=== PATIENT | male | born 2000 | race Caucasian/White ===

== ENCOUNTER 2019-06-17 01:09 | Inpatient (IN) ==
[2019-06-17] MEDS ORDERED: Insulin LISPRO 300 UNITS/3 ML VIAL SQ PRN (02:06)
[2019-06-17] MEDS ORDERED: D5% in 0.45% NACL 1,000 ML IVC PRN (02:06)
[2019-06-17] MEDS ORDERED: *HR* Dextrose 50 % in Water (Syg) 50 ML SYRINGE IVP PRN ×2 (02:06→10:49)
--- NOTE | 2019-06-17 02:06 | Internal Med History&Physical ---
<Maggy Bruce M - Last Filed: 06/17/19 05:46> Date of Encounter: 06/17/19 Time of Encounter: 02:06 Internal Medicine - H&P: HPI Admitted From: Emergency Dept ([facility]) History of present illness: Mr. Alexander is a 19 year old male with known type 1 diabetes who presented to [facility] emergency department secondary to nausea, dry mouth, elevated gluc oses at home as well as abdominal and back pain. The patient doses his insulin himself and states they "run high" but is unable to give me an accurate number for today. He states he is otherwise had a few episodes of vomiting, diarrhea, lightheadedness and weakness. He has had a cough which is been nonproductive but denies any fever, chest pain, shortness of breath, dysuria, hematuria. 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 He denies any missed doses of insulin. He was seen at [facility] emergency department and was found to be in diabetic ketoacidosis. The patient was found to have no significant leukocytosis, anemia. Initial VBG showed a pH of 7.28 with bicarbonate of 11 and PCO2 24. BMP on ar showed anion gap of 25: Oh significant hypokalemia, glucose 519. Patient's beta hydroxybutyrate was greater than 2 and patient had evidence of ketonuria. Patient was initiated on an insulin drip, given IV fluids with 20 mEq potassium supplementation at 150mL/hr. Patients anion gap persisted and was transferred in stable condition. Patient is full code. Past Med Surg Social Fam HX - Past Medical History Attestation: No The following information was validated with the patient. Medical history: cancer (in remission), diabetes, seizures Additional medical history: Leukemia Psychiatric history: anxiety, ADHD, depression, other - Past Surgical History Surgical History: appendectomy - Social History Smoking Status: Former smoker Smokeless Tobacco Status: Yes Alcohol use: occasionally Drug use: none - Family History Father Grandmother Hx Family Endocrine Disorder: Yes (DM) Internal Medicine - H&P: Meds Insulin Glargine,Hum.rec.anlog [Basaglar Kwikpen U-100] 28 units SQ HS 01/03/19 [History] Escitalopram [Lexapro] 10 mg PO DAILY 02/17/19 [History] Insulin LISPRO [Admelog Solostar] 0 unit SQ TID PRN 02/17/19 [History] Lisinopril [Zestril] 5 mg PO DAILY 02/17/19 [History] Omeprazole [PriLOSEC] 40 mg PO DAILY 02/17/19 [History] Pregabalin [Lyrica] 100 mg PO BID 02/17/19 [History] Allergy/AdvReac Type Severity Reaction Status Date / Time aspirin [ASA] Allergy Anaphylaxis Verified 06/16/19 20:16 codeine Allergy Anaphylaxis Verified 06/16/19 20:16 Fish Containing Products Allergy Hives Verified 06/16/19 20:16 morphine Allergy Anaphylaxis Verified 06/16/19 20:16 oseltamivir [From Tamiflu] Allergy Rash Verified 06/16/19 20:16 pendtaime Allergy Anaphylaxis Uncoded 06/16/19 20:16 silk tape AdvReac Itching Uncoded 06/16/19 20:16 All Systems PM: A 10-system review of systems was performed and is negative for pertinent findings except as documented above in the HPI. - Constitutional Constitutional: weakness, no chills, no fever(s) - EENT Eyes: no change in vision, no pain Nose, mouth and throat: dry mouth, no nasal congestion, no sore throat - Cardiovascular Cardiovascular ROS IM: no chest pain, no dyspnea - Respiratory Respiratory: cough, no dyspnea, no wheezing, no pain with cough - Gastrointestinal Gastrointestinal: abdominal pain, diarrhea, nausea, vomiting - Genitourinary Genitourinary ROS male: no difficulty urinating, no dysuria - Musculoskeletal Musculoskeletal ROS IM: back pain, no arthralgias - Integumentary Integumentary IM: no erythema, no rash - Neurological Neurological ROS: no confusion, no tingling - Psychiatric Psychiatric: no anxiety, no depression - Endocrine Endocrine IM: polyphagia, polyuria - Constitutional Vitals: Temp Pulse Resp BP Pulse Ox 97.9 F 138 14 116/72 100 06/17/19 01:25 06/17/19 01:25 06/17/19 01:25 06/17/19 01:25 06/17/19 01:25 Exam: General: Conversant. No apparent distress. Follow commands. Appears stated age. Neck: No JVD. Trachea midline. Neck supple. Eyes: PERRL. No scleral icterus. HENT: Normocephalic and atraumatic. Dry mucus membranes. Cardiovascular: Tachycardic, regular rhythm. Normal S1 and S2. No murmurs appreciated. Normal capillary refill. Extremities well perfused with 2+ distal pulses bilaterally. No edema. Pulmonary: Normal and equal breath sounds bilaterally, anteriorly and posterior ly. No wheezes, rales, or rhonchi. Not in respiratory distress, no accessory muscle use. Speaks in full sentences. Abdomen: Soft, nondistended. diffuse tenderness. No bruits or masses. No guarding or rigidity. Neuro: Alert and oriented x3. No slurred speech. No focal deficits noted. Skin: No rashes noted on visualized skin. Mild 1st degree burn along upper chest, no bullae, sloughing. Musculoskeletal: No bony abnormalities visualized. Moves all extremities. Psych: Normal mood. Pleasant. Makes appropriate eye contact. Internal Med - H&P Results - Labs CBC & Chem 7: 06/17/19 02:19 - Assessment and Plan (1) Diabetic ketoacidosis Current Visit: Yes Status: Acute Assessment and plan: * Initial anion gap 25, repeat here upon arrival shows persistent anion gap of 17 * Patient continues on DKA protocol, currently on insulin drip along with fluids with 20 mEq potassium supplementation, continues to be tachycardic and appears dry * Patient stable without respiratory distress. 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 Alexander is a 19 year old male All Systems PM: A 10-system review of systems was performed and is negative for pertinent findings except as documented above in the HPI. - Constitutional Vitals: Temp Pulse Resp BP Pulse Ox 97.6 F 127 16 123/84 100 06/17/19 05:13 06/17/19 05:13 06/17/19 05:13 06/17/19 05:13 06/17/19 05:13 Internal Med - H&P Results - Labs CBC & Chem 7: 06/17/19 05:56 06/17/19 02:19 Labs: Short CBC 06/17/19 Range/Units 05:56 WBC 15.7 H (4.3-11.1) K/mcL Hgb 14.4 (12.9-16.9) g/dL Hct 42.1 (37.5-50.1) % Plt Count 357 (140-400) K/mcL Neutrophils # 14.1 H (1.6-8.9) K/mcL BMP 06/17/19 02:19 Sodium 135 L Potassium 4.1 Chloride 106 Carbon Dioxide 12 L BUN 20 Creatinine 0.76 Glucose 272 H Calcium 8.9 - ABG Interpretation ABG results: 06/17/19 06/17/19 02:49 06:04 VBG pH 7.32 7.33 VBG pCO2 19 L 29 L VBG pO2 231 H 118 H VBG HCO3 9 L 15 L - Time Spent With Patient Total time spent is greater than 50% in coordination of care (as documented) at patient's floor/unit and/or counseling patient: - Attending Attestation I performed a history and physical examination of the patient and discussed his management with the resident. I reviewed the residents note and agree with the documented findings and plan of care.
[2019-06-17] MEDS ORDERED: Insulin Human Regular 100 UNIT in 0.9 % Sodium Chloride 100 ML IVC SCH ×2 (02:15→08:13)
[2019-06-17] MEDS: Ondansetron 4 MG/2 ML VIAL IVP PRN ×2 (02:50→08:45)
[2019-06-17 02:52] LABS: VBG HCO3 9 mEq/L (21-27); VBG PCO2 19 mmHg (41-51); VBG PH 7.32 pH Units (7.32-7.42); VBG PO2 231 mmHg (25-50)
[2019-06-17 02:59] LABS: BUN/Creatinine Ratio 26 (6-26); Blood Urea Nitrogen 20 mg/dL (6-20); Calcium 8.9 mg/dL (8.6-10.3); Carbon Dioxide 12 mEq/L (23-29); Chloride 106 mEq/L (98-107); Glucose 272 mg/dL (70-105); Magnesium 2.1 mg/dL (1.6-2.6); Osmolality,Calculated 292 (280-300); Potassium 4.1 mEq/L (3.5-5.1); Sodium 135 mEq/L (136-145); eGFR For African Americans > 60 (> 60); eGFR For Non-African Americans > 60 (> 60)
[2019-06-17] MEDS: D5% in 0.45% NACL w KCl 20 MEQ/1,000 ML MLS IVC PRN ×2 (03:44→08:06)
[2019-06-17 05:59] LABS: Basophils % 0.3 %; Eosinophils % 0.1 %; Hematocrit 42.1 % (37.5-50.1); Hemoglobin 14.4 g/dL (12.9-16.9); Immature Granulocytes % 0.4 % (0-4); Lymphocytes # 0.6 K/mcL (0.6-4.6); Lymphocytes % 3.9 %; Mean Corpuscular HGB Conc 34.2 g/dL (31.6-35.5); Mean Corpuscular Hemoglobin 28.9 pg (28.0-33.3); Mean Corpuscular Volume 84.5 fL (83.0-100.0); Mean Platelet Volume 10.6 fL (9.4-12.4); Monocytes # 0.9 K/mcL (0.0-1.3); Monocytes % 5.5 %; Neutrophils # 14.1 K/mcL (1.6-8.9); Platelet Count 357 K/mcL (140-400); Red Blood Count 4.98 M/mcL (4.19-5.50); Red Cell Distribution Width 13.3 % (11.5-14.5); Segmented Neutrophils % 89.8 %; White Blood Count 15.7 K/mcL (4.3-11.1)
[2019-06-17] MEDS ORDERED: Ondansetron 4 MG/2 ML VIAL IVP SCH (06:00)
[2019-06-17 06:02] LABS: Basophils # 0.1 K/mcL (0.0-0.2)
[2019-06-17 06:08] LABS: VBG HCO3 15 mEq/L (21-27); VBG PCO2 29 mmHg (41-51); VBG PH 7.33 pH Units (7.32-7.42); VBG PO2 118 mmHg (25-50)
[2019-06-17] MEDS: *HR* Heparin 5,000 UNIT/ML VIAL SQ SCH ×2 (06:11→16:58)
[2019-06-17 07:06] LABS: BUN/Creatinine Ratio 23 (6-26); Blood Urea Nitrogen 17 mg/dL (6-20); Calcium 8.9 mg/dL (8.6-10.3); Carbon Dioxide 17 mEq/L (23-29); Glucose 293 mg/dL (70-105); Magnesium 1.8 mg/dL (1.6-2.6); eGFR For African Americans > 60 (> 60); eGFR For Non-African Americans > 60 (> 60)
[2019-06-17 07:34] LABS: Estimated Average Glucose 258 mg/dl
--- NOTE | 2019-06-17 07:40 | Internal Med Progress Note ---
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 (5) Cephalgia Current Visit: Yes Status: Acute - Time Spent with Patient Total time spent is greater than 50% in coordination of care (as documented) at patient's floor/unit and/or counseling patient: Internal Medicine: Result - Labs CBC & Chem 7: 06/17/19 05:56 06/17/19 10:12 Labs: Short CBC 06/17/19 Range/Units 05:56 WBC 15.7 H (4.3-11.1) K/mcL Hgb 14.4 (12.9-16.9) g/dL Hct 42.1 (37.5-50.1) % Plt Count 357 (140-400) K/mcL Neutrophils # 14.1 H (1.6-8.9) K/mcL BMP 06/17/19 06/17/19 06/17/19 02:19 05:57 08:26 Sodium 135 L 131 L 135 L Potassium 4.1 3.9 3.8 Chloride 106 112 H 108 H Carbon Dioxide 12 L 17 L 20 L BUN 20 17 16 Creatinine 0.76 0.73 0.68 L Glucose 272 H 293 H 166 H Calcium 8.9 8.9 8.8 06/17/19 10:12 Sodium 136 Potassium 3.8 Chloride 108 H Carbon Dioxide 20 L BUN 15 Creatinine 0.66 L Glucose 91 Calcium 8.9 Consult Discharge Plan - Plan Referrals: NONE,PCP [Primary Care Provider] - - Attending Attestation I examined this patient and my medical decision-making was reviewed with the Resident Physician on 06/17/19. I agree with the documented findings, disposition and treatment plan as described except to the extent set forth below. Mr Alexander is currently admitted for acute DKA. He remains moderate to high risk due to potential for worsening clinical status. Mr Alexander is resting. He is compaining of headache. No fever or chills. DKA now resolved. Exam: Alert comfortable. NC. EOMI. Mucus membranes dry. Heart tachy and regular. No wheeze. Abd soft. Moves all extremities. No edema. No rash. Plan: Change to subqu insulin. Pt says tachycardia is chronic for him. Start diet. Probable d/c tomorrow if stable. <Monico Blackwell - Last Filed: 06/17/19 20:20> Hospitalist Progress Note - Encounter Date of Encounter: 06/17/19 Time of Encounter: 10:00 - Subjective Interval History: Course: Josef Alexander is a 19-year-old male who presented to the [facility] ER 06/16/19 with complaints of vomiting and high blood sugar. 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 He is admitted for DKA and Cummings syndrome. Emesis was nonbloody and occurred around 5 times in the morning of the . He noticed high blood sugars at home in the morning. He denies doing anything differently the night before or missing insulin doses. Initial vitals upon arrival to the ED significant for heart rate of 138. Labs showed VBG pH of 7.28, decreased CO2 and bicarbonate; glucose 519, alkaline phosphatase 129, beta hydroxybutyric acid elevation, urine ketones, proteinuria, glucosuria with negative tox screen. He was given 1 L normal saline, potassium chloride drip, insulin drip. 06/17/19: Mr. Alexander appears in some discomfort. States that he still "feels crappy "but better. Complains of nausea and headache. Denies new symptoms. - Exam Vitals: Temp Pulse Resp BP Pulse Ox 97.6 F 127 16 123/84 100 06/17/19 05:13 06/17/19 05:13 06/17/19 05:13 06/17/19 05:13 06/17/19 05:13 Exam: Gen.: Young male. In some discomfort Skin: Sunburned face and chest. Good skin turgor Eyes: Moist and anicteric Neck: No tender lymphadenopathy. Cardio: Tachycardic. Regular rhythm. No murmurs gallops or rubs. Expiratory: CTA throughout. Nonlabored breathing GI: Soft. Some epigastric pain to palpation. No rebound or guarding. Bowel sounds normal MSK: No clubbing of the upper extremities. No [place]ber[place] nodes Extremities: Capillary refill less than 2 seconds upper extremities. No bilater al lower extremity edema Neuro: Eyes able to focus. No tremors noticed Psych: Appropriate behavior. Answered questions coherently - Assessment and Plan (1) Diabetic ketoacidosis Current Visit: Yes Status: Acute Assessment and Plan: -Could not elicit precipitating factor from history -06/16/19: Glucose 519. Urine ketones. Positive beta hydroxybutyric acid Hemoglobin A1c 10.6. Anion gap 25. Potassium WNL. -Gap corrected. Off insulin drip. Plan: Long-acting basal insulin with sliding scale. Ondansetron for nausea. (2) Tachycardia Current Visit: No Status: Acute Assessment and Plan: -Patient states his baseline is in the 140s -TSH negative. No additional symptoms of excess catecholamines. -We will defer echo for now as shown to be chronic in records. Plan: Telemetry. (3) Diabetic neuropathy associated with type 2 diabetes mellitus Current Visit: No Status: Acute Assessment and Plan: -Chronic -Plan: Pregabalin (4) Diabetic nephropathy Current Visit: Yes Status: Acute Assessment and Plan: -Secondary to poorly controlled diabetes type 1 -Mild proteinuria improved from prior visits. Plan: Lisinopril. DVT Prophylaxis: Ambulate - Time Spent with Patient Total time spent is greater than Internal Medicine: Result - Labs CBC & Chem 7: 06/17/19 05:56 06/17/19 10:12 Labs: Short CBC 06/17/19 Range/Units 05:56 WBC 15.7 H (4.3-11.1) K/mcL Hgb 14.4 (12.9-16.9) g/dL Hct 42.1 (37.5-50.1) % Plt Count 357 (140-400) K/mcL Neutrophils # 14.1 H (1.6-8.9) K/mcL BMP 06/17/19 06/17/19 02:19 05:57 Sodium 135 L Potassium 4.1 Chloride 106 Carbon Dioxide 12 L 17 L BUN 20 17 Creatinine 0.76 0.73 Glucose 272 H 293 H Calcium 8.9 8.9 <Raheem Gilbert - Last Filed: 06/17/19 14:50> (1) Diabetic ketoacidosis Qualifiers: Diabetes mellitus type: type 1 Diabetes mellitus complication detail: without coma Qualified Code(s): E10.10 - Type 1 diabetes mellitus with ketoacidosis without coma (2) Diabetic neuropathy associated with type 2 diabetes mellitus Qualifiers: Diabetes mellitus complication detail: diabetic autonomic neuropathy Qualified Code(s): E11.43 - Type 2 diabetes mellitus with diabetic autonomic (poly)neuropathy (5) Cephalgia Qualifiers: Headache type: unspecified Headache chronicity pattern: chronic headache Intractability: not intractable Qualified Code(s): R51 - Headache <Monico Blackwell G - Last Filed: 06/17/19 20:20> (1) Diabetic ketoacidosis Qualifiers: Diabetes mellitus type: type 1 Diabetes mellitus complication detail: without coma Qualified Code(s): E10.10 - Type 1 diabetes mellitus with ketoacidosis without coma (3) Diabetic neuropathy associated with type 2 diabetes mellitus Qualifiers: Diabetes mellitus complication detail: diabetic autonomic neuropathy Qualified Code(s): E11.43 - Type 2 diabetes mellitus with diabetic autonomic (poly)neuropathy
[2019-06-17 07:57] LABS: Chloride 112 mEq/L (98-107); Potassium 3.9 mEq/L (3.5-5.1)
[2019-06-17 08:02] LABS: Osmolality,Calculated 284 (280-300); Sodium 131 mEq/L (136-145)
[2019-06-17] MEDS: 0.9 % Sodium Chloride 1,000 ML IVC SCH ×3 (08:23→19:18)
[2019-06-17] MEDS: 0.9 % Sodium Chloride w KCl 20 MEQ/1,000 ML MLS IVC SCH ×3 (08:23→09:02)
[2019-06-17 08:46] LABS: VBG HCO3 16 mEq/L (21-27); VBG PCO2 22 mmHg (41-51); VBG PH 7.46 pH Units (7.32-7.42); VBG PO2 200 mmHg (25-50)
[2019-06-17 08:59] LABS: BUN/Creatinine Ratio 24 (6-26); Blood Urea Nitrogen 16 mg/dL (6-20); Calcium 8.8 mg/dL (8.6-10.3); Carbon Dioxide 20 mEq/L (23-29); Chloride 108 mEq/L (98-107); Glucose 166 mg/dL (70-105); Magnesium 1.7 mg/dL (1.6-2.6); Osmolality,Calculated 285 (280-300); Potassium 3.8 mEq/L (3.5-5.1); Sodium 135 mEq/L (136-145); eGFR For African Americans > 60 (> 60); eGFR For Non-African Americans > 60 (> 60)
[2019-06-17 10:47] LABS: VBG HCO3 20 mEq/L (21-27); VBG PCO2 38 mmHg (41-51); VBG PH 7.33 pH Units (7.32-7.42); VBG PO2 162 mmHg (25-50)
[2019-06-17] MEDS ORDERED: D5% in Water 1,000 ML IVC PRN (10:49)
[2019-06-17] MEDS ORDERED: Dextrose Gel 15 GM/37.5 ML TUBE PO PRN ×2 (10:49)
[2019-06-17] MEDS ORDERED: Insulin DETEMIR 100 UNIT/ML X5UNITS SQ ONE (10:51)
[2019-06-17] MEDS ORDERED: Acetaminophen 325 MG TABLET PO PRN (11:07)
[2019-06-17 11:10] LABS: BUN/Creatinine Ratio 23 (6-26); Blood Urea Nitrogen 15 mg/dL (6-20); Calcium 8.9 mg/dL (8.6-10.3); Carbon Dioxide 20 mEq/L (23-29); Chloride 108 mEq/L (98-107); Glucose 91 mg/dL (70-105); Magnesium 1.8 mg/dL (1.6-2.6); Osmolality,Calculated 282 (280-300); Potassium 3.8 mEq/L (3.5-5.1); Sodium 136 mEq/L (136-145); eGFR For African Americans > 60 (> 60); eGFR For Non-African Americans > 60 (> 60)
[2019-06-17] MEDS: Acetaminophen 325 MG TABLET PO PRN ×2 (12:14→20:52)
[2019-06-17] MEDS: Insulin LISPRO 300 UNITS/3 ML VIAL SQ SCH ×2 (13:49→16:58)
[2019-06-17] MEDS ORDERED: Melatonin 3 MG TABLET PO PRN (20:06)
[2019-06-17] MEDS ORDERED: Pregabalin 50 MG CAPSULE PO SCH (21:00)
[2019-06-17] MEDS ORDERED: Insulin LISPRO 300 UNITS/3 ML VIAL SQ SCH (21:00)
[2019-06-17] MEDS ORDERED: Insulin DETEMIR 100 UNIT/ML X5UNITS SQ SCH (21:00)
[2019-06-18 04:28] LABS: Basophils % 0.6 %; Eosinophils # 0.1 K/mcL (0.0-0.6); Eosinophils % 0.7 %; Hematocrit 39.6 % (37.5-50.1); Hemoglobin 14.3 g/dL (12.9-16.9); Immature Granulocytes % 0.1 % (0-4); Lymphocytes # 0.6 K/mcL (0.6-4.6); Lymphocytes % 8.3 %; Mean Corpuscular HGB Conc 36.1 g/dL (31.6-35.5); Mean Corpuscular Hemoglobin 28.9 pg (28.0-33.3); Mean Corpuscular Volume 80.2 fL (83.0-100.0); Mean Platelet Volume 9.1 fL (9.4-12.4); Monocytes # 0.6 K/mcL (0.0-1.3); Monocytes % 8.1 %; Platelet Count 390 K/mcL (140-400); Red Blood Count 4.94 M/mcL (4.19-5.50); Red Cell Distribution Width 13.2 % (11.5-14.5); Segmented Neutrophils % 82.2 %
[2019-06-18 04:32] LABS: Neutrophils # 5.9 K/mcL (1.6-8.9); White Blood Count 7.2 K/mcL (4.3-11.1)
[2019-06-18 04:48] LABS: BUN/Creatinine Ratio 21 (6-26); Blood Urea Nitrogen 11 mg/dL (6-20); Calcium 8.8 mg/dL (8.6-10.3); Carbon Dioxide 25 mEq/L (23-29); Chloride 103 mEq/L (98-107); Glucose 99 mg/dL (70-105); Osmolality,Calculated 281 (280-300); Potassium 3.5 mEq/L (3.5-5.1); Sodium 136 mEq/L (136-145); eGFR For African Americans > 60 (> 60); eGFR For Non-African Americans > 60 (> 60)
[2019-06-18] MEDS: *HR* Heparin 5,000 UNIT/ML VIAL SQ SCH ×2 (05:28→17:35)
[2019-06-18] MEDS ORDERED: Dextrose Gel 15 GM/37.5 ML TUBE PO PRN ×2 (06:47)
[2019-06-18] MEDS ORDERED: D5% in Water 1,000 ML IVC PRN (06:47)
[2019-06-18] MEDS ORDERED: Melatonin 3 MG TABLET PO PRN (06:47)
[2019-06-18] MEDS ORDERED: Ondansetron 4 MG/2 ML VIAL IVP PRN (06:47)
[2019-06-18] MEDS ORDERED: Acetaminophen 325 MG TABLET PO PRN (06:47)
[2019-06-18] MEDS ORDERED: *HR* Dextrose 50 % in Water (Syg) 50 ML SYRINGE IVP PRN (06:47)
--- NOTE | 2019-06-18 07:34 | Discharge Summary ---
Date of Encounter: 06/18/19 Time of Encounter: 07:33 - Discharge Diagnosis (1) Diabetic ketoacidosis Status: Acute Qualifiers: Diabetes mellitus type: type 1 Diabetes mellitus complication detail: without coma Qualified Code(s): E10.10 - Type 1 diabetes mellitus with ketoacidosis without coma (2) Tachycardia Status: Acute (3) Diabetic neuropathy associated with type 2 diabetes mellitus Status: Acute Qualifiers: Diabetes mellitus complication detail: diabetic autonomic neuropathy Qualified Code(s): E11.43 - Type 2 diabetes mellitus with diabetic autonomic (poly)neuropathy (4) Diabetic nephropathy Status: Acute Hospital course: Mr. Alexander is a 19 year old male - Time Spent with Patient Total time spent providing and/or coordinating discharge services: - Discharge Medications Prescriptions: No Action Mometasone Furoate [Asmanex] 2 puff IH DAILY Melatonin 5 mg PO HS PRN PRN Reason: Sleep Albuterol Sulfate [Proair Hfa] 4 puff IH Q4H PRN PRN Reason: WHEEZING/SOB Cidofovir 0.5 gm TP BID Insulin Glargine,Hum.rec.anlog [Basaglar Kwikpen U-100] 28 units SQ HS Pregabalin [Lyrica] 100 mg PO BID Lisinopril [Zestril] 5 mg PO DAILY Insulin LISPRO [Admelog Solostar] 0 unit SQ TID PRN PRN Reason: PER SLIDING SCALE Escitalopram [Lexapro] 10 mg PO DAILY Home Medications: Insulin Glargine,Hum.rec.anlog [Basaglar Kwikpen U-100] 28 units SQ HS 01/03/19 [History] Escitalopram [Lexapro] 10 mg PO DAILY 02/17/19 [History] Insulin LISPRO [Admelog Solostar] 0 unit SQ TID PRN 02/17/19 [History] Lisinopril [Zestril] 5 mg PO DAILY 02/17/19 [History] Pregabalin [Lyrica] 100 mg PO BID 02/17/19 [History] Albuterol Sulfate [Proair Hfa] 4 puff IH Q4H PRN 06/17/19 [History] Cidofovir 0.5 gm TP BID 06/17/19 [History] Melatonin 5 mg PO HS PRN 06/17/19 [History] Mometasone Furoate [Asmanex] 2 puff IH DAILY 06/17/19 [History] Allergies/Adverse Reactions: Allergy/AdvReac Type Severity Reaction Status Date / Time aspirin [ASA] Allergy Anaphylaxis Verified 06/16/19 20:16 codeine Allergy Anaphylaxis Verified 06/16/19 20:16 Fish Containing Products Allergy Hives Verified 06/16/19 20:16 morphine Allergy Anaphylaxis Verified 06/16/19 20:16 oseltamivir [From Tamiflu] Allergy Rash Verified 06/16/19 20:16 pendtaime Allergy Anaphylaxis Uncoded 06/16/19 20:16 silk tape AdvReac Itching Uncoded 06/16/19 20:16 Date of admission: 06/17/19 01:09 Primary care physician: PCP NONE - Constitutional Vitals: Temp Pulse Resp BP Pulse Ox 97.8 F 119 17 129/88 100 06/18/19 04:39 06/18/19 04:39 06/18/19 04:39 06/18/19 04:39 06/18/19 04:39 - Discharge Instructions Follow Up With: NONE,PCP [Primary Care Provider] -
[2019-06-18] MEDS: Pregabalin 50 MG CAPSULE PO SCH ×2 (08:04→20:33)
[2019-06-18] MEDS: Insulin LISPRO 300 UNITS/3 ML VIAL SQ SCH ×3 (08:07→17:12)
--- NOTE | 2019-06-18 09:05 | Internal Med Progress Note ---
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 (5) Cephalgia Current Visit: Yes Status: Acute - Time Spent with Patient Total time spent is greater than 50% in coordination of care (as documented) at patient's floor/unit and/or counseling patient: Internal Medicine: Result - Labs CBC & Chem 7: 06/18/19 04:09 06/18/19 04:09 Labs: Short CBC 06/18/19 Range/Units 04:09 WBC 7.2 D (4.3-11.1) K/mcL Hgb 14.3 (12.9-16.9) g/dL Hct 39.6 (37.5-50.1) % Plt Count 390 (140-400) K/mcL Neutrophils # 5.9 (1.6-8.9) K/mcL BMP 06/18/19 04:09 Sodium 136 Potassium 3.5 Chloride 103 Carbon Dioxide 25 BUN 11 Creatinine 0.53 L Glucose 99 Calcium 8.8 Cardiac Enzymes 06/18/19 Range/Units 10:00 Troponin I < 0.03 (< 0.04) ng/mL Liver Function 06/18/19 Range/Units 12:59 Total Bilirubin 0.3 (0.3-1.0) mg/dL Direct Bilirubin 0.0 (0.0-0.2) mg/dL AST 10 L (13-39) Units/L ALT 10 (7-52) Units/L Alkaline Phosphatase 114 H (34-104) Units/L Albumin 3.9 (3.5-5.7) g/dL - ABG Interpretation ABG results: PT/INR, D-dimer PT 10.2 Seconds (9.4-12.1) 07/21/19 12:59 - Impressions Impressions Chest CTA 06/18/19 09:29 IMPRESSION: Stable CTA chest with no evidence of pulmonary embolism and chronic lung findings as described. D/ / Magdalene Campos MD / Magdalene Campos MD Interpreting Provider: Magdalene Campos MD Consult Discharge Plan - Plan Referrals: NONE,PCP [Primary Care Provider] - - Attending Attestation I examined this patient and my medical decision-making was reviewed with the Resident Physician on 06/18/19. I agree with the documented findings, dispos ition and treatment plan as described except to the extent set forth below. Mr Alexander is currently hospitalized for acute DKA. He has developed chest pain today. He remains moderate to high risk due to potential for worsening clinical status. Mr Alexander is having a lot of sharp chest pain today. Heart rate remains elevated. No SOB. Headache gone now. No GI issues. Exam: Alert. Mod distress due to pain. Mucus membranes dry. Neck supple. Heart reg and tachy. No wheeze. Abd soft and nontender. No edema. Moves all equally. No rash. Plan: Pt relates history of "chronic" heart rate elevation. Will check to see if we can talk to other family. Meets sepsis criteria - pursuing. Sepsis Reassessment Note - Focused Exam Vital Signs: Vital Signs Temp Pulse Resp BP Pulse Ox 06/18/19 13:59 97.8 F 124 18 127/81 100 06/18/19 11:50 97.7 F 139 18 132/76 98 06/18/19 09:14 18 100 06/18/19 09:10 97.9 F 121 19 128/90 100 06/18/19 07:30 98.0 F 124 16 126/90 98 06/18/19 04:39 97.8 F 119 17 129/88 100 <Monico Blackwell G - Last Filed: 06/18/19 18:23> Hospitalist Progress Note - Encounter Date of Encounter: 06/18/19 Time of Encounter: 08:30 - Subjective Interval History: Initially the patient stated that he was feeling about the same as yesterday with no new issues. Patient complained of acute onset shortness of breath and substernal chest pain as I was leaving the room. Prior episodes for at least several months. Episodes are sudden in onset and usually occur 3-4 times per week. Resolve spontaneously or with inhaler therapy. Some exertional exacerbation. Chest pain is sharp and substernal without radiation to neck or left arm. Episodes last 1-2 hours. Last episode yesterday around noon. Today there is no associated diaphoresis. States he experiences accompanying nausea occasionally. CTA stat, EKG, troponins, repeat vitals were ordered and nurse was instructed to have respiratory therapy give patient his when necessary inhalers. - Exam Vitals: Temp Pulse Resp BP Pulse Ox 98.0 F 124 16 126/90 98 06/18/19 07:30 06/18/19 07:30 06/18/19 07:30 06/18/19 07:30 06/18/19 07:30 Exam: Gen.: Young male. Appears somewhat in discomfort. Eyes: Moist conjunctiva. Nonicteric Cardio: Tachycardic. Regular rhythm. No murmurs gallops rubs. Respiratory: CTA throughout. Breathing nonlabored initially but became labored later on in the encounter. GI: Some epigastric tenderness improved from yesterday. Soft. MSK: Tenderness to sternal area and rib cage. Extremities: No bilateral lower extremity edema. Verrucous lesion on phalanges. Psychiatric: Answers questions coherently. Somewhat anxious. - Assessment and Plan (1) Sepsis Current Visit: Yes Status: Suspected Assessment and Plan: -Consider due to possible urinary tract infection -SIRS 2 out of 4 met 06/17/19: temp stable, pulse 138, rr stable, WBC 15.7 -lactic acid 3.1>1.6; blood cultures NTD. Normal saline 30 mL per KG given. Plan: Ceftriaxone day 1. blood cultures 06/18/19 x2 pending// UA pending (2) Synthetic cannabinoid abuse Current Visit: Yes Status: Acute Assessment and Plan: Patient likely withdrawing. Has endorsed symptoms of abdominal pain, decreased appetite, headache, i rritability. -As seen on urine tox screen 06/18/19 plan: Continue to monitor (3) Acute dyspnea Current Visit: Yes Status: Acute Assessment and Plan: -Consider secondary to PE versus asthma versus ACS versus lactic acidosis -Patient has been experiencing recurrent episodes of dyspnea and shortness of br eath as above. Tachycardia at baseline. -CTA chest negative for PE. I do not appreciate any significant ST changes on EKG. Troponin negative. Plan: Continue to monitor (4) Tachycardia Current Visit: No Status: Acute Assessment and Plan: -Patient states his baseline is in the 140s. We continue to search for a cause, possibly infection. -TSH negative. No additional symptoms of excess catecholamines. -Telemetry. Plan: ACS ruled out as above. Continue to monitor (5) Diabetic ketoacidosis Current Visit: Yes Status: Resolved Assessment and Plan: -Could not elicit precipitating factor from history -06/16/19: Glucose 519. Urine ketones. Positive beta hydroxybutyric acid Hemoglobin A1c 10.6. Anion gap 25. Potassium WNL. -Gap corrected. Off insulin drip. 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 continue low-dose sliding scale. Ondansetron for nausea. (6) Diabetic nephropathy Current Visit: Yes Status: Acute Assessment and Plan: -Secondary to poorly controlled diabetes type 1 -Mild proteinuria improved from prior visits. Plan: Lisinopril. (7) Diabetic neuropathy associated with type 2 diabetes mellitus Current Visit: No Status: Acute Assessment and Plan: -Chronic -Plan: Pregabalin DVT Prophylaxis: Ambulate - Time Spent with Patient Total time spent is greater than 50% in coordination of care (as documented) at patient's floor/unit and/or counseling patient: Internal Medicine: Result - Labs CBC & Chem 7: 06/18/19 04:09 06/18/19 04:09 Labs: Short CBC 06/18/19 Range/Units 04:09 WBC 7.2 D (4.3-11.1) K/mcL Hgb 14.3 (12.9-16.9) g/dL Hct 39.6 (37.5-50.1) % Plt Count 390 (140-400) K/mcL Neutrophils # 5.9 (1.6-8.9) K/mcL BMP 06/17/19 06/18/19 10:12 04:09 Sodium 136 136 Potassium 3.8 3.5 Chloride 108 H 103 Carbon Dioxide 20 L 25 BUN 15 11 Creatinine 0.66 L 0.53 L Glucose 91 99 Calcium 8.9 8.8 - EKG Interpretation EKG Interpreted by Myself: Yes EKG shows normal: sinus rhythm Rate: tachycardia (normal axis, no ST elevation or depression, hr 125) Sepsis Reassessment Note - Evaluation Sepsis Screen: No Definite Risk Current Stage of Sepsis: sepsis Possible Source of Sepsis: unknown - Focused Exam Date of Encounter: 06/18/19 Time of Encounter: 09:00 Vital Signs: Vital Signs Temp Pulse Resp BP Pulse Ox 06/18/19 11:50 97.7 F 139 18 132/76 98 06/18/19 09:14 18 100 06/18/19 09:10 97.9 F 121 19 128/90 100 06/18/19 07:30 98.0 F 124 16 126/90 98 06/18/19 04:39 97.8 F 119 17 129/88 100 Respiratory Exam: Present: CTA bilaterally Cardiovascular Exam: Present: tachycardia Capillary Refill: < 2 seconds Peripheral Pulse Strength: 3+ normal Peripheral Pulse Location: Radial Skin Exam: pale <Raheem Gilbert A - Last Filed: 06/18/19 14:16> (1) Diabetic ketoacidosis Qualifiers: Diabetes mellitus type: type 1 Diabetes mellitus complication detail: without coma Qualified Code(s): E10.10 - Type 1 diabetes mellitus with ketoacidosis without coma (2) Diabetic neuropathy associated with type 2 diabetes mellitus Qualifiers: Diabetes mellitus complication detail: diabetic autonomic neuropathy Qualified Code(s): E11.43 - Type 2 diabetes mellitus with diabetic autonomic (poly)neuropathy (5) Cephalgia Qualifiers: Headache type: unspecified Headache chronicity pattern: chronic headache Intractability: not intractable Qualified Code(s): R51 - Headache <Monico Blackwell G - Last Filed: 06/18/19 18:23> (5) Diabetic ketoacidosis Qualifiers: Diabetes mellitus type: type 1 Diabetes mellitus complication detail: without coma Qualified Code(s): E10.10 - Type 1 diabetes mellitus with ketoacidosis without coma (7) Diabetic neuropathy associated with type 2 diabetes mellitus Qualifiers: Diabetes mellitus complication detail: diabetic autonomic neuropathy Qualified Code(s): E11.43 - Type 2 diabetes mellitus with diabetic autonomic (poly)neuropathy
[2019-06-18] MEDS ORDERED: Isovue-370 500 ML BOTTLE IVP ONE (09:29)
[2019-06-18] MEDS ORDERED: GI Cocktail 40 ML EACH PO ONE (10:41)
[2019-06-18 13:19] LABS: INR 0.9; Prothrombin Time 10.2 Seconds (9.4-12.1)
[2019-06-18 13:22] LABS: Activated Partial Thrombo Time 31.9 Seconds (26.0-36.0)
[2019-06-18] MEDS: cefTRIAXone 2,000 MG in Water for inj. (sterile) 20 ML IVP SCH (13:24)
[2019-06-18] MEDS: 0.9 % Sodium Chloride 1,000 ML IVC SCH ×2 (13:24→14:39)
[2019-06-18 13:32] LABS: Albumin 3.9 g/dL (3.5-5.7); Albumin/Globulin Ratio 1.6 (1.1-2.2); Bilirubin,Indirect 0.3 mg/dL (0.0-1.2); Bilirubin,Total 0.3 mg/dL (0.3-1.0); Globulin 2.4 g/dL (2.4-3.5); Total Protein 6.3 g/dL (6.4-8.9)
[2019-06-18 14:22] LABS: Amphetamine Screen,Urine Negative ng/mL (Cutoff=1000); Barbiturate Screen,Urine Negative ng/mL (Cutoff=200); Benzodiazepines Screen,Urine Negative ng/mL (Cutoff=200); Cannabinoid Screen,Urine Positive ng/mL (Cutoff = 50); Cocaine Screen,Urine Negative ng/mL (Cutoff= 300); Opiate Screen,Urine Negative ng/mL (Cutoff=300); Phencyclidine Screen,Urine Negative ng/mL (Cutoff=25)
[2019-06-18 16:01] LABS: Bilirubin,Urine Negative (Negative); Blood,Urine Negative (Negative); Clarity,Urine Clear (Clear); Color,Urine Yellow (Yellow); Glucose,Urine (UA) 500 mg/dL (Normal); Ketones,Urine Negative (Negative); Leukocyte Esterase,Urine Negative (Negative); Nitrite,Urine Negative (Negative); PH,Urine 6.5 pH Units (5.0-8.0); Protein,Urine Negative (Neg-Trace); Specific Gravity,Urine > 1.030 (1.010-1.025); Urobilinogen,Urine Normal (Normal)
[2019-06-18] MEDS ORDERED: Acetaminophen/Butalbital/CaffeineTABLET PO ONE (20:14)
[2019-06-18] MEDS ORDERED: Insulin DETEMIR 100 UNIT/ML X5UNITS SQ SCH ×2 (21:00)
[2019-06-18] MEDS ORDERED: Insulin LISPRO 300 UNITS/3 ML VIAL SQ SCH (21:00)
[2019-06-19] MEDS: *HR* Heparin 5,000 UNIT/ML VIAL SQ SCH (05:04)
[2019-06-19 05:57] LABS: Basophils % 0.7 %; Eosinophils # 0.1 K/mcL (0.0-0.6); Eosinophils % 1.5 %; Hematocrit 39.5 % (37.5-50.1); Immature Granulocytes % 0.3 % (0-4); Lymphocytes # 0.6 K/mcL (0.6-4.6); Lymphocytes % 9.9 %; Mean Corpuscular HGB Conc 35.4 g/dL (31.6-35.5); Mean Corpuscular Hemoglobin 28.9 pg (28.0-33.3); Mean Corpuscular Volume 81.6 fL (83.0-100.0); Mean Platelet Volume 9.2 fL (9.4-12.4); Monocytes # 0.5 K/mcL (0.0-1.3); Monocytes % 7.8 %; Neutrophils # 4.7 K/mcL (1.6-8.9); Platelet Count 366 K/mcL (140-400); Red Blood Count 4.84 M/mcL (4.19-5.50); Red Cell Distribution Width 13.3 % (11.5-14.5); Segmented Neutrophils % 79.8 %; White Blood Count 5.9 K/mcL (4.3-11.1)
--- NOTE | 2019-06-19 06:03 | Internal Med Progress Note ---
Hospitalist Progress Note - Encounter Date of Encounter: 06/19/19 - Subjective Interval History: The patient states that he feels better today. He asks when he can leave and feels that he is ready to be discharged. - Exam Vitals: Temp Pulse Resp BP Pulse Ox 97.9 F 98 16 128/76 97 06/19/19 03:54 06/19/19 03:54 06/19/19 03:54 06/19/19 03:54 06/19/19 03:54 Exam: Gen.: Young male. No acute distress Skin: Pale. Warty lesions of right phalanges and left first phalange. Cardiac: Tachycardic. Regular rhythm. No murmurs gallops or rubs Respiratory: CTA throughout. Nonlabored breathing GI: Nondistended. No jaundice Extremities: Upper extremities capillary refill less than 2 seconds bilaterally. No lower extremity edema Neuro: Eyes able to focus. No active tremors noticed Psych: Appropriate behavior. Answers questions coherently - Assessment and Plan (1) Diabetic ketoacidosis Current Visit: Yes Status: Resolved Assessment and Plan: -Could not elicit precipitating factor from history -06/16/19: Glucose 519. Urine ketones. Positive beta hydroxybutyric acid Hemoglobin A1c 10.6. Anion gap 25. Potassium WNL. -Gap corrected. Off insulin drip. 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 Change to high-dose sliding scale. Ondansetron for nausea. (2) Sepsis Current Visit: Yes Status: Suspected Assessment and Plan: -Consider due to possible urinary tract infection -SIRS 2 out of 4 met 06/17/19: temp stable, pulse 138, rr stable, WBC 15.7 -lactic acid 3.1>1.6; blood cultures NTD. Normal saline 30 mL per KG given. Plan: Ceftriaxone day 2. blood cultures 06/18/19 x2 NGTD// U/A negative (3) Acute dyspnea Current Visit: Yes Status: Acute Assessment and Plan: -Consider secondary to PE versus asthma versus ACS versus lactic acidosis -Patient has been experiencing recurrent episodes of dyspnea and shortness of breath as above. Tachycardia at baseline. -CTA chest negative for PE. I do not appreciate any significant ST changes on EKG. Troponin negative. Lactic acid WNL Plan: No longer symptomatic. Continue to monitor (4) Synthetic cannabinoid abuse Current Visit: Yes Status: Acute Assessment and Plan: Patient likely withdrawing. Has endorsed symptoms of abdominal pain, decreased appetite, headache, irritability. -As seen on urine tox screen 06/18/19 plan: Continue to monitor (5) Tachycardia Current Visit: No Status: Acute Assessment and Plan: -Patient states his baseline is in the 140s. We continue to search for a cause, possibly infection. -TSH negative. No additional symptoms of excess catecholamines. -Telemetry. Plan: ACS ruled out as above. Continue to monitor (6) Diabetic nephropathy Current Visit: Yes Status: Acute Assessment and Plan: -Secondary to poorly controlled diabetes type 1 -Mild proteinuria improved from prior visits. Plan: Lisinopril. (7) Diabetic neuropathy associated with type 2 diabetes mellitus Current Visit: No Status: Acute Assessment and Plan: -Chronic -Plan: Pregabalin DVT Prophylaxis: Ambulate - Time Spent with Patient Total time spent is greater wolfgang Internal Medicine: Result - Labs CBC & Chem 7: 06/19/19 05:21 06/19/19 05:21 Labs: Short CBC 06/19/19 Range/Units 05:21 WBC 5.9 (4.3-11.1) K/mcL Hgb 14.0 (12.9-16.9) g/dL Hct 39.5 (37.5-50.1) % Plt Count 366 (140-400) K/mcL Neutrophils # 4.7 (1.6-8.9) K/mcL Cardiac Enzymes 06/18/19 Range/Units 10:00 Troponin I < 0.03 (< 0.04) ng/mL Liver Function 06/18/19 Range/Units 12:59 Total Bilirubin 0.3 (0.3-1.0) mg/dL Direct Bilirubin 0.0 (0.0-0.2) mg/dL AST 10 L (13-39) Units/L ALT 10 (7-52) Units/L Alkaline Phosphatase 114 H (34-104) Units/L Albumin 3.9 (3.5-5.7) g/dL Urine 06/18/19 Range/Units 13:30 Urine Color Yellow (Yellow) Urine Clarity Clear (Clear) Urine pH 6.5 (5.0-8.0) pH Units Ur Specific [place] > 1.030 H (1.010-1.025) Urine Protein Negative (Neg-Trace) mg/dL Urine Glucose (UA) 500 H (Normal) mg/dL - ABG Interpretation ABG results: PT/INR, D-dimer PT 10.2 Seconds (9.4-12.1) 06/18/19 12:59 - Impressions Impressions Chest CTA 06/18/19 09:29 IMPRESSION: Stable CTA chest with no evidence of pulmonary embolism and chronic lung findings as described. D/ / Magdalene Campos MD / Magdalene Campos MD Interpreting Provider: Magdalene Campos MD Consult Discharge Plan - Plan Referrals: NONE,PCP [Primary Care Provider] - (1) Diabetic ketoacidosis Qualifiers: Diabetes mellitus type: type 1 Diabetes mellitus complication detail: without coma Qualified Code(s): E10.10 - Type 1 diabetes mellitus with ketoacidosis without coma (7) Diabetic neuropathy associated with type 2 diabetes mellitus Qualifiers: Diabetes mellitus complication detail: diabetic autonomic neuropathy Qualified Code(s): E11.43 - Type 2 diabetes mellitus with diabetic autonomic (poly)neuropathy
[2019-06-19 06:14] LABS: BUN/Creatinine Ratio 17 (6-26); Blood Urea Nitrogen 9 mg/dL (6-20); Calcium 8.6 mg/dL (8.6-10.3); Carbon Dioxide 25 mEq/L (23-29); Chloride 102 mEq/L (98-107); Glucose 185 mg/dL (70-105); Osmolality,Calculated 289 (280-300); Potassium 3.7 mEq/L (3.5-5.1); Sodium 138 mEq/L (136-145); eGFR For African Americans > 60 (> 60); eGFR For Non-African Americans > 60 (> 60)
--- NOTE | 2019-06-19 09:26 | Discharge Summary ---
<Raheem Gilbert - Last Filed: 06/19/19 14:12> Orders not resulted at time of discharge: Pending orders 06/18/19 12:59 Culture,Blood [BC] Stat Date of Encounter: 06/19/19 - Discharge Diagnosis (1) Diabetic ketoacidosis Priority: Primary Status: Resolved Qualifiers: Diabetes mellitus type: type 1 Diabetes mellitus complication detail: without coma Qualified Code(s): E10.10 - Type 1 diabetes mellitus with ketoacidosis without coma (2) Diabetic neuropathy associated with type 2 diabetes mellitus Priority: Secondary Status: Chronic Qualifiers: Diabetes mellitus complication detail: diabetic autonomic neuropathy Qualified Code(s): E11.43 - Type 2 diabetes mellitus with diabetic autonomic (poly)neuropathy (3) Tachycardia Priority: Secondary Status: Chronic (4) Gurpreet's syndrome Priority: Secondary Status: Chronic (5) Cephalgia Priority: Secondary Status: Resolved Qualifiers: Headache type: unspecified Headache chronicity pattern: chronic headache Intractability: not intractable Qualified Code(s): R51 - Headache (6) Sepsis Priority: Secondary Status: Resolved Qualifiers: Sepsis type: sepsis due to unspecified organism Qualified Code(s): A41.9 - Sepsis, unspecified organism Hospital course: Mr. Alexander is a 19 year old male - Time Spent with Patient Total time spent providing and/or coordinating discharge services: - Discharge Medications Prescriptions: New Cefdinir [Omnicef] 300 mg PO DAILY 3 Days #3 capsule Continued Mometasone Furoate [Asmanex] 2 puff IH DAILY Melatonin 5 mg PO HS PRN PRN Reason: Sleep Albuterol Sulfate [Proair Hfa] 4 puff IH Q4H PRN PRN Reason: WHEEZING/SOB Cidofovir 0.5 gm TP BID Insulin Glargine,Hum.rec.anlog [Basaglar Kwikpen U-100] 28 units SQ HS Pregabalin [Lyrica] 100 mg PO BID Lisinopril [Zestril] 5 mg PO DAILY Insulin LISPRO [Admelog Solostar] 0 unit SQ TID PRN PRN Reason: PER SLIDING SCALE Escitalopram [Lexapro] 10 mg PO DAILY Home Medications: Insulin Glargine,Hum.rec.anlog [Basaglar Kwikpen U-100] 28 units SQ HS 01/03/19 [History] Escitalopram [Lexapro] 10 mg PO DAILY 02/17/19 [History] Insulin LISPRO [Admelog Solostar] 0 unit SQ TID PRN 02/17/19 [History] Lisinopril [Zestril] 5 mg PO DAILY 02/17/19 [History] Pregabalin [Lyrica] 100 mg PO BID 02/17/19 [History] Albuterol Sulfate [Proair Hfa] 4 puff IH Q4H PRN 06/17/19 [History] Cidofovir 0.5 gm TP BID 06/17/19 [History] Melatonin 5 mg PO HS PRN 06/17/19 [History] Mometasone Furoate [Asmanex] 2 puff IH DAILY 06/17/19 [History] Cefdinir [Omnicef] 300 mg PO DAILY 3 Days #3 capsule 06/19/19 [Rx] Allergies/Adverse Reactions: Allergy/AdvReac Type Severity Reaction Status Date / Time aspirin [ASA] Allergy Anaphylaxis Verified 06/16/19 20:16 codeine Allergy Anaphylaxis Verified 06/16/19 20:16 Fish Containing Products Allergy Hives Verified 06/16/19 20:16 morphine Allergy Anaphylaxis Verified 06/16/19 20:16 oseltamivir [From Tamiflu] Allergy Rash Verified 06/16/19 20:16 pendtaime Allergy Anaphylaxis Uncoded 06/16/19 20:16 silk tape AdvReac Itching Uncoded 06/16/19 20:16 Date of admission: 06/18/19 18:08 Primary care physician: PCP NONE - Constitutional Vitals: Temp Pulse Resp BP Pulse Ox 97.9 F 133 18 132/85 99 06/19/19 11:42 06/19/19 11:42 06/19/19 11:42 06/19/19 11:42 06/19/19 11:42 - Patient Status Disposition: Home, Self-Care Condition: Fair - Discharge Instructions Instructions: Diabetes Mellitus Type 2 in Adults (DC) Follow Up With: Shikha Esposito MD [Non-Partnered Physician] - (Called and left message with patient name and birthday...) NONE,PCP [Primary Care Provider] - Additional Instructions: -finish antibiotics to completion -Low carbohydrate and sugar diet - - Attending Attestation I examined this patient and my medical decision-making was reviewed with the Resident Physician on 06/19/19. I agree with the documented findings, disposition and treatment plan as described except to the extent set forth below. Mr Alexander has been hospitalized for acute DKA. There was concern for sepsis - no source. Was on IV abx and will complete a course of Cefdinir. At this time he is afebrile. Blood sugar elevated but did not receive breakfast insulin. He is ready for discharge. Exam: Alert. Comfortable. Mucus membranes dry. Heart reg and tachy. No wheeze. Abd soft. No edema. NC. Neck supple. Moves all extremities. D/C time 37min <Monico Blackwell - Last Filed: 06/19/19 19:05> - NOTES TO OUTPATIENT PROVIDER Notes to Outpatient Provider: Patient presented with DKA with unknown exacerbating incident. He was tachycardic throughout stay which he considers his baseline. urine tox positive for cannabinoids. We searched for infectious cause and placed on ceftriaxone IV for one day. no source of infection found. will discharge with cefdinir 3 days for a total of 5 days antibiotics. Orders not resulted at time of discharge: Pending orders 06/18/19 08:55 EKG [ECG 12 lead ECG] [ECG] Stat 06/18/19 12:59 Culture,Blood [BC] Stat Date of Encounter: 06/19/19 Time of Encounter: 09:00 - Discharge Diagnosis (1) Diabetic nephropathy Priority: Primary Status: Acute (2) Sepsis Priority: Secondary Status: Resolved Qualifiers: Sepsis type: sepsis due to unspecified organism Qualified Code(s): A41.9 - Sepsis, unspecified organism (3) Synthetic cannabinoid abuse Priority: Secondary Status: Acute (4) Acute dyspnea Priority: Secondary Status: Acute (5) Tachycardia Priority: Secondary Status: Chronic (6) Diabetic ketoacidosis Priority: Secondary Status: Resolved Qualifiers: Diabetes mellitus type: type 1 Diabetes mellitus complication detail: without coma Qualified Code(s): E10.10 - Type 1 diabetes mellitus with ketoacidosis without coma (7) Diabetic neuropathy associated with type 2 diabetes mellitus Priority: Secondary Status: Chronic Qualifiers: Diabetes mellitus complication detail: diabetic autonomic neuropathy Qualified Code(s): E11.43 - Type 2 diabetes mellitus with diabetic autonomic (poly)neuropathy Hospital course: Mr. Alexander is a 19 year old male who presented to the [facility] 06/16/19 with complaints of vomiting and high blood sugar. 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 He was admitted for DKA. Initial vital significant for tachycardia. Initial labs showed increased white blood cell count, glucose 293, A1c 10.6. VBG: PH 7.33 with decreased CO2 and bicarbonate. Patient was treated with insulin drip and ketoacidosis resolved. The patient was also diagnosed with sepsis due to tachycardia, initial elevated white blood cell count, and lactic acid of 3.1. No sure source of infection was found, however patient status improved after first day of ceftriaxone so that he will be discharged on 3 days of Cefdinir for a total of 5 days antibiotic therapy. Patient was tachycardic throughout stay which he states is baseline for him. Patient was agreeable with discharge. - Time Spent with Patient Total time spent providing and/or coordinating discharge services: Date of admission: 06/18/19 18:08 Primary care physician: PCP NONE Discharging clinician: Raheem Gilbert Anticipated date of discharge: 06/19/19 - Constitutional Vitals: Temp Pulse Resp BP Pulse Ox 97.9 F 126 20 118/76 99 06/19/19 07:37 06/19/19 07:37 06/19/19 07:37 06/19/19 07:37 06/19/19 07:37 Exam: Gen.: Young male. No acute distress Skin: Pale. Warty lesions of right phalanges and left first phalange. Cardiac: Tachycardic. Regular rhythm. No murmurs gallops or rubs Respiratory: CTA throughout. Nonlabored breathing GI: Nondistended. No jaundice Extremities: Upper extremities capillary refill less than 2 seconds bilaterally. No lower extremity edema Neuro: Eyes able to focus. No active tremors noticed Psych: Appropriate behavior. Answers questions coherently - Patient Status Functional capacity at discharge: independent ambulation Overall status at discharge: patient is progressing back to baseline - Diet and Activity Activity: increase activity as tolerated Diet: diabetic diet
[2019-06-19] MEDS: Pregabalin 50 MG CAPSULE PO SCH (10:44)
[2019-06-19] MEDS: Insulin LISPRO 300 UNITS/3 ML VIAL SQ SCH ×2 (10:44→11:58)
--- NOTE | 2019-06-19 10:57 | Electrocardiograph Report ---
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
[2019-06-19 11:49] VITALS: BP 132/85
[2019-06-19] MEDS ORDERED: Insulin LISPRO 300 UNITS/3 ML VIAL SQ SCH (13:16)
[2019-06-19] MEDS: cefTRIAXone 2,000 MG in Water for inj. (sterile) 20 ML IVP SCH (13:28)
== END 2019-06-19 16:05 | disposition home or self-care (01) | DRG 420 ==
LOC: 2NNU → SUATTDRO 01:09 → 2ANU 06-18 02:52
PROVIDERS: ADMIT Internal Medicine Nephrology; ATTEND Internal Medicine

== ENCOUNTER 2019-08-17 19:22 | Observation (INO) ==
[2019-08-17] MEDS ORDERED: Insulin DETEMIR 100 UNIT/ML X5UNITS SQ SCH (23:45)
[2019-08-17] MEDS ORDERED: Dextrose Gel 15 GM/37.5 ML TUBE PO PRN ×2 (23:52)
[2019-08-17] MEDS ORDERED: D5% in Water 1,000 ML IVC PRN (23:52)
[2019-08-17] MEDS ORDERED: *HR* Dextrose 50 % in Water (Syg) 50 ML SYRINGE IVP PRN (23:52)
--- NOTE | 2019-08-17 23:55 | Internal Med History&Physical ---
<Joseluis Nixon - Last Filed: 08/18/19 02:37> Date of Encounter: 08/18/19 Time of Encounter: 23:54 Internal Medicine - H&P: HPI Chief complaint: Diabetic ketoacidosis Admitted From: Hospital to Hospital Transfer History of present illness: Mr. Alexander is a 19 year old male past medical history of uncontrolled type 1 diabetes with multiple hospitalizations for diabetic ketoacidosis. Patient has hypertension, diabetic neuropathy, anxiety/depression, currently on home dose lisinopril, hydrocodone, gabapentin, insulin, Lexapro, Cymbalta. Patient presented to an outside ED due to 3-4 day history of generalized malaise, arth ralgias/myalgias, headache, chest pain, dyspnea abdominal pain nausea vomiting and visual change. Patient states is consistent with his prior episodes of diabetic ketoacidosis. Patient states that his nausea and vomiting were managed well with ondansetron at the ED, he also states that his chest pain and shortness of breath have completely resolved. Patient was noted to have a glucose level of 544 while in the ED which was treated with 2 L of fluid as well as insulin, patient arrived to [facility] [place] with a POC glucose of 114 is reported by RN. Patient was further noted to have a hyperosmolar hyponatremia with sodium value of 128, elevated alkaline phosphatase at 140, cristian vated beta hydroxybutyric acid at greater than 2 urine glucose of 500 urine ketones greater to 160, he is positive for marijuana on toxicology screening. Upon my initial examination the patient is awake, alert, oriented he is engaged conversation answering questions properly, he is in mild to moderate distress due to pain which she states 10 out of 10 on the pain scale diffuse in his head neck back and abdomen. The patient complains of paresthesias with diabetic neuropathy down his lower extremities, he states that he was having chest pain and dyspnea earlier well to ED with these of symptoms completely resolved, he also states that he was nauseous with resolved with ondansetron given at the outside ER. Patient states that he has had some visual changes as well as lightheadedness and weakness. He has no other concerns or complaints at this time. I spoke with pharmacy regarding this patient's medications and I will begin home dose meds of insulin glargine, place the patient on a moderate sliding scale insulin dosing regimen, I will restart his lisinopril as well as hydrocodone and ondansetron at their home dose. I will give the patient 1 time dose of 25 g of fentanyl due to his acute pain. I discussed my plan of care with the patient at bedside and they verbalized understanding and agreement with this course of action. Past Med Surg Social Fam HX - Past Medical History Medical history: asthma, diabetes, seizures Additional medical history: blood disorder. Psychiatric history: anxiety, ADHD, depression, other - Past Surgical History Surgical History: appendectomy - Social History Smoking Status: Current every day smoker Smokeless Tobacco Status: Yes Alcohol use: occasionally Drug use: none - Family History Father Grandmother Hx Family Endocrine Disorder: Yes (DM) Internal Medicine - H&P: Meds Insulin Glargine,Hum.rec.anlog [Basaglar Kwikpen U-100] 28 units SQ HS 01/03/19 [History] Escitalopram [Lexapro] 10 mg PO DAILY 02/17/19 [History] Insulin LISPRO [Admelog Solostar] 0 unit SQ TID PRN 02/17/19 [History] Lisinopril [Zestril] 5 mg PO DAILY 02/17/19 [History] Albuterol Sulfate [Proair Hfa] 4 puff IH Q4H PRN 06/17/19 [History] Melatonin 5 mg PO HS PRN 06/17/19 [History] Mometasone Furoate [Asmanex] 2 puff IH DAILY 06/17/19 [History] Cyclobenzaprine HCl 10 mg PO TID PRN 06/30/19 [History] Gabapentin [Neurontin] 300 mg PO TID 06/30/19 [History] DULoxetine [Cymbalta] 30 mg PO DAILY 30 Days #30 capsule. 07/05/19 [Rx] Gabapentin [Neurontin] 300 mg PO DAILY 15 Days #15 capsule 08/05/19 [Rx] Gabapentin [Neurontin] 600 mg PO HS 15 Days #15 capsule 08/05/19 [Rx] HYDROcodone/Acet 5/325 mg [Como 5-325 mg] 1 tab PO Q4H PRN 3 Days #12 tab 08/10/19 [Rx] Ondansetron ODT [Zofran ODT] 4 mg SL Q6HR #10 tab.rapdis 08/10/19 [Rx] Allergy/AdvReac Type Severity Reaction Status Date / Time aspirin [ASA] Allergy Anaphylaxis Verified 08/17/19 16:38 codeine Allergy Anaphylaxis Verified 08/17/19 16:38 Fish Containing Products Allergy Hives Verified 08/17/19 16:38 morphine Allergy Anaphylaxis Verified 08/17/19 16:38 oseltamivir [From Tamiflu] Allergy Rash Verified 08/17/19 16:38 pendtaime Allergy Anaphylaxis Uncoded 08/17/19 16:38 silk tape AdvReac Itching Uncoded 08/17/19 16:38 All Systems PM: A 10-system review of systems was performed and is negative for pertinent findings except as documented above in the HPI. Review of systems: *See History of Present Illness for more detail Constitutional: Admits to generalized malaise, arthralgias and myalgias ENT: Admits to visual changes Cardiovascular: Denies: chest pain Respiratory: Denies: dyspnea Gastrointestinal: Admits: abdominal pain, nausea, denies: vomiting, hematemesis, melena, hematochezia Genitourinary: Denies: hematuria Musculoskeletal: Admits: back pain, neck pain Neurological: Admits: headache, weakness, denies: lightheadedness/dizziness, numbness, paresthesias, difficulty with ambulation. Endocrine: Admits: fatigue - Constitutional Vitals: Temp Pulse Resp BP Pulse Ox 97.7 F 117 20 122/85 100 08/17/19 23:24 08/17/19 23:24 08/17/19 23:24 08/17/19 23:24 08/17/19 23:24 Exam: Constitutional: Mild to moderate distress, otherwise [id number], engaged to conversation, speech is fluid, answers questions appropriately Neuro: GCS 15, no overt focal neurological deficits Head: Atraumatic, normocephalic Eyes: Pupils equal, round and reactive to light, no scleral icterus, no conjun ctival injection Neck: Trachea midline without deviation. Anterior neck is supple without swelling. *Chest: Symmetric chest wall rise *Heart: Cardiac rhythm and rate are regular with S1 and S2 , no S3 or S4 appreciated, no murmurs, gallops, rubs, or clicks. *Lungs: Lungs are clear to auscultation bilaterally, without accessory muscle use or prolonged expiratory phase. No wheezes, rhonchi or stridor appreciated. Abdomen: Abdomen is flat, soft to palpation, normal bowel sounds. No abdominal bruit auscultated. Non-distended, non-rigid, no organomegaly, no ascites appr eciated. No pulsatile mass, no tenderness or guarding to palpation in all four quadrants, no rebound Extremities: Normal capillary refill without evidence of pedal edema, joint swelling or erythema. Pulses/motor/sensory intact in all 4 extremities. Psychiatric exam: Patient appears anxious and mildly agitated due to pain Integumentary: warm, dry, intact, normal color. No rash, cyanosis, diaphoresis, erythema, or pallor Internal Med - H&P Results - Labs CBC & Chem 7: 08/18/19 00:31 - Assessment and Plan (1) Diabetic ketoacidosis Current Visit: No Status: Resolved Assessment and plan: Patient currently normoglycemic at 96 Repeat BMP shows continued gap, beta hydroxybutyric acid >2 Restart insulin gtt, replace K+ Repeat Labs Q4H starting at 4am Restart patient's home basal dose insulin glargine to be substituted for insulin Levemir per pharmacy recommendations Moderate sliding scale insulin dose correction per pharmacy recommendations Maintenance fluids at 80 mL per hour Consult tobacco educator Diabetic diet Qualifiers: Diabetes mellitus type: type 1 Diabetes mellitus complication detail: without coma Qualified Code(s): E10.10 - Type 1 diabetes mellitus with ketoacidosis without coma (2) Diabetic nephropathy Current Visit: No Status: Acute Assessment and plan: One-time fentanyl 25 g Restart patient's hydrocodone 5/325 every 4 hours when necessary for pain Restart patient's home gabapentin 600 mg daily at bedtime, 300 mg every morning Qualifiers: Diabetes mellitus type: type 1 Qualified Code(s): E10.21 - Type 1 diabetes mellitus with diabetic nephropathy (3) Nausea & vomiting Current Visit: Yes Status: Acute Assessment and plan: Every 4 hours when necessary ondansetron Qualifiers: Vomiting type: unspecified Vomiting Intractability: non-intractable Qualified Code(s): R11.2 - Nausea with vomiting, unspecified (4) Hypertension Current Visit: Yes Status: Acute Assessment and plan: Restart patient's home lisinopril Continue to monitor Qualifiers: Hypertension type: essential hypertension Qualified Code(s): I10 - Essential (primary) hypertension (5) DVT prophylaxis Current Visit: Yes Status: Acute Assessment and plan: 4 times a day ambulation - Time Spent With Patient Total time spent is greater than 50% in coordination of care (as documented) at patient's floor/unit and/or counseling patient: <Greg Valdes - Last Filed: 08/18/19 08:08> Date of Encounter: 08/17/19 Internal Medicine - H&P: HPI History of present illness: Mr. Alexander is a 19 year old male All Systems PM: A 10-system review of systems was performed and is negative for pertinent findings except as documented above in the HPI. - Constitutional Vitals: Temp Pulse Resp BP Pulse Ox 97.7 F 113 18 110/72 100 08/18/19 06:34 08/18/19 06:34 08/18/19 06:34 08/18/19 06:34 08/18/19 06:34 Internal Med - H&P Results - Labs CBC & Chem 7: 08/18/19 05:05 08/18/19 05:05 Labs: Short CBC 08/18/19 Range/Units 05:05 WBC 7.6 (4.3-11.1) K/mcL Hgb 12.6 L D (12.9-16.9) g/dL Hct 35.4 L (37.5-50.1) % Plt Count 230 (140-400) K/mcL Neutrophils # 5.9 (1.6-8.9) K/mcL BMP 08/18/19 08/18/19 00:31 05:05 Sodium 137 D 133 L Potassium 4.0 3.7 Chloride 105 108 H Carbon Dioxide 17 L 17 L BUN 15 12 Creatinine 0.61 L 0.52 L Glucose 95 206 H Calcium 9.9 8.2 L - ABG Interpretation ABG results: 08/18/19 08/18/19 02:02 05:19 VBG pH 7.27 L 7.43 H D VBG pCO2 42 26 L VBG pO2 73 H 154 H VBG HCO3 19 L 17 L - Time Spent With Patient Total time spent is greater than 50% in coordination of care (as documented) at patient's floor/unit and/or counseling patient: - Attending Attestation I saw and evaluated the patient. I reviewed the residents note, performed my own physical examination and agree with findings and plan as documented in the residents note. Patient seen and examined on 08/17/19 at 0117. Patient presents in DKA. Upon arrival to [facility] the patient's blood glucose was back to normal levels, however he still demonstrated a gap acidosis and his bicarb was low. Advised resident and nurse to maintain the insulin drip as well as IV fluids. Started DKA protocol which includes appropriate fluids in the setting of normal blood glucose. We will need to continue to monitor the patient's lab values and only when his gap and bicarb are back to normal can we proceed with stopping the IV insulin and IV fluids. Patient has had frequent hospitalizations in the past for this as well. Will transition back to subcutaneous insulin when appropriate. Patient to remain NPO meanwhile.
[2019-08-18] MEDS ORDERED: *HR* HYDROcodone/Acet 5/325 mg TABLET PO PRN (00:06)
[2019-08-18] MEDS ORDERED: *HR* FentaNYL (PF) 100 MCG/2 ML VIAL IVP ONE ×2 (00:09→23:06)
[2019-08-18] MEDS ORDERED: 0.9 % Sodium Chloride 1,000 ML IVC SCH ×3 (00:15→12:00)
[2019-08-18] MEDS: Gabapentin 300 MG CAPSULE PO SCH ×3 (00:47→21:39)
[2019-08-18 01:10] LABS: BUN/Creatinine Ratio 25 (6-26); Blood Urea Nitrogen 15 mg/dL (6-20); Calcium 9.9 mg/dL (8.6-10.3); Carbon Dioxide 17 mEq/L (23-29); Chloride 105 mEq/L (98-107); Glucose 95 mg/dL (70-105); Osmolality,Calculated 285 (280-300); Sodium 137 mEq/L (136-145); eGFR For African Americans > 60 (> 60); eGFR For Non-African Americans > 60 (> 60)
[2019-08-18] MEDS ORDERED: D5% in 0.9% NACL 1,000 ML IVC ONE (01:21)
[2019-08-18] MEDS ORDERED: *HR* Dextrose 50 % in Water (Syg) 50 ML SYRINGE IVP PRN (01:30)
[2019-08-18] MEDS ORDERED: Insulin Regular, Human 100 UNIT/ML IV PRN (01:30)
[2019-08-18] MEDS ORDERED: Insulin Human Regular 100 UNIT in 0.9 % Sodium Chloride 100 ML IVC SCH (01:30)
[2019-08-18] MEDS ORDERED: D5% in 0.45% NACL 1,000 ML IVC PRN (01:30)
[2019-08-18 02:07] LABS: VBG HCO3 19 mEq/L (21-27); VBG PCO2 42 mmHg (41-51); VBG PH 7.27 pH Units (7.32-7.42); VBG PO2 73 mmHg (25-50)
[2019-08-18] MEDS ORDERED: D5% in 0.45% NACL w KCl 20 MEQ/1,000 ML MLS IVC PRN (02:40)
[2019-08-18] MEDS ORDERED: D5% in 0.45% NACL w KCl 20 MEQ/1,000 ML MLS IVC ONE (02:48)
[2019-08-18 05:18] LABS: Basophils # 0.1 K/mcL (0.0-0.2); Basophils % 0.9 %; Eosinophils # 0.1 K/mcL (0.0-0.6); Eosinophils % 1.2 %; Hematocrit 35.4 % (37.5-50.1); Hemoglobin 12.6 g/dL (12.9-16.9); Immature Granulocytes % 0.3 % (0-4); Lymphocytes % 13.6 %; Mean Corpuscular HGB Conc 35.6 g/dL (31.6-35.5); Mean Corpuscular Volume 81.4 fL (83.0-100.0); Mean Platelet Volume 10.1 fL (9.4-12.4); Monocytes # 0.5 K/mcL (0.0-1.3); Monocytes % 6.1 %; Neutrophils # 5.9 K/mcL (1.6-8.9); Platelet Count 230 K/mcL (140-400); Red Blood Count 4.35 M/mcL (4.19-5.50); Red Cell Distribution Width 12.1 % (11.5-14.5); Segmented Neutrophils % 77.9 %; White Blood Count 7.6 K/mcL (4.3-11.1)
[2019-08-18 05:23] LABS: VBG HCO3 17 mEq/L (21-27); VBG PCO2 26 mmHg (41-51); VBG PH 7.43 pH Units (7.32-7.42); VBG PO2 154 mmHg (25-50)
[2019-08-18 05:33] LABS: BUN/Creatinine Ratio 23 (6-26); Blood Urea Nitrogen 12 mg/dL (6-20); Calcium 8.2 mg/dL (8.6-10.3); Carbon Dioxide 17 mEq/L (23-29); Chloride 108 mEq/L (98-107); Glucose 206 mg/dL (70-105); Osmolality,Calculated 282 (280-300); Phosphorous 2.6 mg/dL (2.7-4.5); Potassium 3.7 mEq/L (3.5-5.1); Sodium 133 mEq/L (136-145); eGFR For African Americans > 60 (> 60); eGFR For Non-African Americans > 60 (> 60)
[2019-08-18 05:49] LABS: Platelet Estimate Normal (Normal)
[2019-08-18] MEDS ORDERED: Insulin DETEMIR 100 UNIT/ML X5UNITS SQ SCH ×3 (07:23→21:00)
[2019-08-18] MEDS ORDERED: Melatonin 3 MG TABLET PO PRN (10:32)
[2019-08-18] MEDS ORDERED: Insulin LISPRO 300 UNITS/3 ML VIAL SQ SCH ×3 (12:00→14:41)
--- NOTE | 2019-08-18 12:29 | Internal Med Progress Note ---
Hospitalist Progress Note - Encounter Date of Encounter: 08/18/19 Time of Encounter: 10:00 - Subjective Interval History: Patient was seen this morning. He feels tired and fatigued. He denied any specific pain. He had no chest pain or shortness of breath. - Exam Vitals: Temp Pulse Resp BP Pulse Ox 97.7 F 107 18 124/83 100 08/18/19 11:25 08/18/19 11:25 08/18/19 11:25 08/18/19 11:25 08/18/19 11:25 Exam: General: Patient is alert, oriented 3. Head: Atraumatic, normal inspection, normocephalic. Eye: EOMI, PERRLA, no scleral icterus noted. ENT: Mucous membranes moist. Neck: Normal inspection, Respiratory: No respiratory distress, rhonchi, or wheezes noted. Cardiovascular: Regular rate and regular rhythm, S1 and S2 audible. No murmurs, rubs, or gallops. GI: Soft, nondistended, normal bowel sounds. Extremities:No joint swelling, pedal edema, or tenderness noted. Neurological: Alert, oriented 3, no focal deficits. Psychiatric: normal affect, normal mood. Skin: Dry, intact, warm. Normal color. No rashes. - Assessment and Plan (1) Nausea & vomiting Current Visit: Yes Status: Resolved (2) Hyperglycemia due to type 1 diabetes mellitus Current Visit: Yes Status: Acute (3) Synthetic cannabinoid abuse Current Visit: Yes Status: Chronic (4) Diabetic ketoacidosis Current Visit: Yes Status: Resolved - Summary of Assessment and Plan Summary of Assessment and Plan: Mr. Alexander is a 19 year old male with a PMHx of ADHD, T1DM, Depression presented with generlized weakness and managed for DKA. T1DM:on 28u levemir at home, and SSI. bgm were low this morning then became high. Stop D5 NS, started on NS and LSSI. will give only 10u of levemir tonight since he got 28u already this morning. ADA diet. Accu checks TIDAC. DKA: gap closed twice, transition to SC. Depression: continue home medication Chronic pain: was seen by pain specialist last visit. Continue gabapentin, cymbalata, added tramadol PRN for pain. Heparin SC FOR dvt PPX. - Time Spent with Patient Total time spent is greater than 50% in coordination of care (as documented) at patient's floor/unit and/or counseling patient: Internal Medicine: Result - Labs CBC & Chem 7: 08/18/19 05:05 08/18/19 05:05 Labs: Short CBC 08/18/19 Range/Units 05:05 WBC 7.6 (4.3-11.1) K/mcL Hgb 12.6 L D (12.9-16.9) g/dL Hct 35.4 L (37.5-50.1) % Plt Count 230 (140-400) K/mcL Neutrophils # 5.9 (1.6-8.9) K/mcL BMP 08/18/19 08/18/19 00:31 05:05 Sodium 137 D 133 L Potassium 4.0 3.7 Chloride 105 108 H Carbon Dioxide 17 L 17 L BUN 15 12 Creatinine 0.61 L 0.52 L Glucose 95 206 H Calcium 9.9 8.2 L Consult Discharge Plan - Plan Referrals: Shikha Esposito MD [Primary Care Provider] - 09/07/19 3:00 pm (1) Nausea & vomiting Qualifiers: Vomiting type: unspecified Vomiting Intractability: non-intractable Qualified Code(s): R11.2 - Nausea with vomiting, unspecified (4) Diabetic ketoacidosis Qualifiers: Diabetes mellitus type: type 1 Diabetes mellitus complication detail: without coma Qualified Code(s): E10.10 - Type 1 diabetes mellitus with ketoacidosis without coma
[2019-08-18] MEDS: 0.9 % Sodium Chloride 1,000 ML IVC SCH ×2 (12:47→21:39)
[2019-08-18 14:18] LABS: BUN/Creatinine Ratio 16 (6-26); Blood Urea Nitrogen 13 mg/dL (6-20); Calcium 8.5 mg/dL (8.6-10.3); Carbon Dioxide 17 mEq/L (23-29); Chloride 101 mEq/L (98-107); Glucose 567 mg/dL (70-105); Osmolality,Calculated 292 (280-300); Potassium 5.6 mEq/L (3.5-5.1); Sodium 128 mEq/L (136-145); eGFR For African Americans > 60 (> 60); eGFR For Non-African Americans > 60 (> 60)
[2019-08-18] MEDS ORDERED: Insulin LISPRO 300 UNITS/3 ML VIAL SQ ONE (14:45)
[2019-08-18] MEDS: traMADol 50 MG TABLET PO PRN (16:18)
[2019-08-18 18:21] LABS: BUN/Creatinine Ratio 22 (6-26); Blood Urea Nitrogen 15 mg/dL (6-20); Calcium 8.9 mg/dL (8.6-10.3); Carbon Dioxide 23 mEq/L (23-29); Chloride 103 mEq/L (98-107); Glucose 151 mg/dL (70-105); Osmolality,Calculated 282 (280-300); Potassium 4.1 mEq/L (3.5-5.1); Sodium 134 mEq/L (136-145); eGFR For African Americans > 60 (> 60); eGFR For Non-African Americans > 60 (> 60)
[2019-08-18] MEDS: Ondansetron ODT 4 MG TAB.RAPDIS SL PRN (21:38)
[2019-08-18] MEDS ORDERED: D5% in 0.45% NACL 1,000 ML IVC SCH (23:15)
[2019-08-19 02:15] LABS: BUN/Creatinine Ratio 16 (6-26); Blood Urea Nitrogen 13 mg/dL (6-20); Calcium 8.3 mg/dL (8.6-10.3); Carbon Dioxide 21 mEq/L (23-29); Chloride 105 mEq/L (98-107); Glucose 172 mg/dL (70-105); Magnesium 1.8 mg/dL (1.6-2.6); Osmolality,Calculated 284 (280-300); Phosphorous 3.9 mg/dL (2.7-4.5); Potassium 3.6 mEq/L (3.5-5.1); Sodium 135 mEq/L (136-145); eGFR For African Americans > 60 (> 60); eGFR For Non-African Americans > 60 (> 60)
[2019-08-19] MEDS ORDERED: D5% in 0.45% NACL 1,000 ML IVC SCH (03:13)
[2019-08-19] MEDS: traMADol 50 MG TABLET PO PRN (05:03)
[2019-08-19] MEDS ORDERED: *HR* Dextrose 50 % in Water (Syg) 50 ML SYRINGE IVP PRN (05:13)
[2019-08-19] MEDS ORDERED: D5% in Water 1,000 ML IVC PRN (05:13)
[2019-08-19] MEDS ORDERED: Dextrose Gel 15 GM/37.5 ML TUBE PO PRN ×2 (05:13)
[2019-08-19] MEDS ORDERED: Insulin DETEMIR 100 UNIT/ML X5UNITS SQ ONE (05:32)
[2019-08-19] MEDS: Insulin LISPRO 300 UNITS/3 ML VIAL SQ SCH ×5 (06:15→23:21)
[2019-08-19 07:33] LABS: BUN/Creatinine Ratio 22 (6-26); Blood Urea Nitrogen 13 mg/dL (6-20); Carbon Dioxide 23 mEq/L (23-29); Chloride 102 mEq/L (98-107); Glucose 203 mg/dL (70-105); Osmolality,Calculated 288 (280-300); Potassium 3.7 mEq/L (3.5-5.1); Sodium 136 mEq/L (136-145); eGFR For African Americans > 60 (> 60); eGFR For Non-African Americans > 60 (> 60)
[2019-08-19] MEDS ORDERED: Ringers Solution, Lactated 1,000 ML ONE (07:54)
[2019-08-19] MEDS: Ringers Solution, Lactated 1,000 ML IVC SCH ×2 (08:05→18:26)
[2019-08-19] MEDS: Gabapentin 300 MG CAPSULE PO SCH ×2 (08:05→21:07)
[2019-08-19] MEDS ORDERED: Isovue-370 500 ML BOTTLE IVP ONE (10:16)
--- NOTE | 2019-08-19 15:00 | Internal Med Progress Note ---
Hospitalist Progress Note - Encounter Date of Encounter: 08/19/19 Time of Encounter: 08:30 - Subjective Interval History: Patient was complaining about left lower quadrant abdominal pain with no nausea or vomiting. He had no chest pain, fever or chills. - Exam Vitals: Temp Pulse Resp BP Pulse Ox 97.7 F 121 16 111/70 98 08/19/19 11:35 08/19/19 11:35 08/19/19 11:35 08/19/19 11:35 08/19/19 11:35 Exam: General: Patient is alert, oriented 3. Head: Atraumatic, normal inspection, normocephalic. Eye: EOMI, PERRLA, no scleral icterus noted. ENT: Mucous membranes moist. Neck: Normal inspection, Respiratory: No respiratory distress, rhonchi, or wheezes noted. Cardiovascular: Tachycardic and regular rhythm, S1 and S2 audible. No murmurs, rubs, or gallops. GI: Soft, nondistended, normal bowel sounds. No rigidity or rebound noted Extremities:No joint swelling, pedal edema, or tenderness noted. Neurological: Alert, oriented 3, no focal deficits. Psychiatric: normal affect, normal mood. Skin: Dry, intact, warm. Normal color. No rashes. 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 Alexander is a 19 year old male with a PMHx of ADHD, T1DM, Depression presented with generlized weakness and managed for DKA. T1DM:on 28u levemir at home, and SSI however he only checks his blood sugar once a day. bgm is under control today. Continue NS, ADA diet. Accu checks TIDAC. LLQ abdominal pain: CT scan with no acute finding, he had moderate amount of stool. Start him on bowel regimen. DKA: gap closed twice, transition to SC. Depression: continue home medication, follows with psychologist as outpatient Chronic pain: was seen by pain specialist last visit, follows with [facility] for acupuncture once every month. Continue gabapentin, cymbalata, added Toradol PRN for pain. Heparin SC FOR dvt PPX. Spoke with his mother at bedside. Patient had very low tolerance for pain, PLEASE ABSTAIN FROM OPIATES. - Time Spent with Patient Total time spent is greater than 50% in coordination of care (as documented) at patient's floor/unit and/or counseling patient: Plan of Care Discussed with: patient Internal Medicine: Result - Labs CBC & Chem 7: 08/18/19 05:05 08/19/19 07:03 Labs: BMP 08/18/19 08/19/19 08/19/19 17:31 00:57 07:03 Sodium 134 L 135 L 136 Potassium 4.1 D 3.6 3.7 Chloride 103 105 102 Carbon Dioxide 23 21 L 23 BUN 15 13 13 Creatinine 0.69 L 0.81 0.58 L Glucose 151 H 172 H 203 H Calcium 8.9 8.3 L 9.0 - ABG Interpretation ABG results: PT/INR, D-dimer D-Dimer 463 ng/mLFEU (0-500) 08/19/19 09:18 - Impressions Impressions Abdomen/Pelvis CT 08/19/19 14:37 IMPRESSION: No acute intra-abnormality. Tiny pleural effusions, similar to prior. There is underlying emphysema and a stable tiny pulmonary nodule in the left lower lobe D/ / Carlos A Gutierrez MD / Carlos A Gutierrez MD Interpreting Provider: Carlos A Gutierrez MD Consult Discharge Plan - Plan Referrals: Shikha Esposito MD [Primary Care Provider] - 09/07/19 3:00 pm (1) Nausea & vomiting Qualifiers: Vomiting type: unspecified Vomiting Intractability: non-intractable Qualified Code(s): R11.2 - Nausea with vomiting, unspecified (4) Diabetic ketoacidosis Qualifiers: Diabetes mellitus type: type 1 Diabetes mellitus complication detail: without coma Qualified Code(s): E10.10 - Type 1 diabetes mellitus with ketoacidosis without coma
[2019-08-19] MEDS: Psyllium 1 PACKET POWD.PACK PO SCH ×2 (15:29→21:07)
--- NOTE | 2019-08-19 15:32 | Electrocardiograph Report ---
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
[2019-08-19] MEDS: Ketorolac 30 MG/ML VIAL IVP PRN ×2 (15:37→21:57)
[2019-08-19] MEDS: *HR* Heparin 5,000 UNIT/ML VIAL SQ SCH (18:26)
[2019-08-19] MEDS: Ondansetron ODT 4 MG TAB.RAPDIS SL PRN (19:46)
[2019-08-19] MEDS ORDERED: MOM Conc 10 ML UD.LIQ PO SCH (21:00)
[2019-08-19] MEDS ORDERED: Insulin DETEMIR 100 UNIT/ML X5UNITS SQ SCH (21:00)
[2019-08-20] MEDS: Ringers Solution, Lactated 1,000 ML IVC SCH (03:49)
[2019-08-20] MEDS: *HR* Heparin 5,000 UNIT/ML VIAL SQ SCH (05:43)
[2019-08-20] MEDS: Insulin LISPRO 300 UNITS/3 ML VIAL SQ SCH ×2 (08:35→12:00)
[2019-08-20] MEDS: Gabapentin 300 MG CAPSULE PO SCH (08:59)
[2019-08-20] MEDS: Ketorolac 30 MG/ML VIAL IVP PRN (09:00)
[2019-08-20] MEDS: Psyllium 1 PACKET POWD.PACK PO SCH (09:00)
[2019-08-20 09:26] LABS: Hematocrit 40.1 % (37.5-50.1); Mean Corpuscular HGB Conc 34.9 g/dL (31.6-35.5); Mean Corpuscular Hemoglobin 28.9 pg (28.0-33.3); Mean Corpuscular Volume 82.7 fL (83.0-100.0); Platelet Count 286 K/mcL (140-400); Red Blood Count 4.85 M/mcL (4.19-5.50); White Blood Count 4.3 K/mcL (4.3-11.1)
[2019-08-20 09:45] LABS: BUN/Creatinine Ratio 27 (6-26); Blood Urea Nitrogen 17 mg/dL (6-20); Calcium 9.1 mg/dL (8.6-10.3); Carbon Dioxide 27 mEq/L (23-29); Chloride 100 mEq/L (98-107); Glucose 213 mg/dL (70-105); Osmolality,Calculated 282 (280-300); Potassium 4.5 mEq/L (3.5-5.1); Sodium 132 mEq/L (136-145); eGFR For African Americans > 60 (> 60); eGFR For Non-African Americans > 60 (> 60)
--- NOTE | 2019-08-20 10:00 | Discharge Summary ---
- NOTES TO OUTPATIENT PROVIDER Notes to Outpatient Provider: Patient was admitted for DKA. Follow with endocrinology. He also had chronic pain syndrome for which he follows with [facility] for acupuncture. Date of Encounter: 08/20/19 Time of Encounter: 09:40 - Discharge Diagnosis (1) Diabetic ketoacidosis Priority: Primary Status: Resolved Qualifiers: Diabetes mellitus type: type 1 Diabetes mellitus complication detail: without coma Qualified Code(s): E10.10 - Type 1 diabetes mellitus with ketoacidosis without coma (2) Nausea & vomiting Priority: Secondary Status: Resolved Qualifiers: Vomiting type: unspecified Vomiting Intractability: non-intractable Qualified Code(s): R11.2 - Nausea with vomiting, unspecified (3) Hyperglycemia due to type 1 diabetes mellitus Priority: Secondary Status: Acute (4) Synthetic cannabinoid abuse Priority: Secondary Status: Chronic (5) Chronic pain syndrome Priority: Secondary Status: Chronic Hospital course: Mr. Alexander is a 19 year old male with history of chronic pain syndrome, brittle diabetes type 1 who came into the hospital due to nausea/vomiting and was treated for DKA. Patient then was transferred to his home knows of insulin. His blood sugars fluctuate but was stable at discharge. He also had chronic pain syndrome for which he follows with [facility] for acupuncture. Today, he is clinically and hemodynamically stable. He will be discharged home in stable condition. Discharge discussed with: patient - Time Spent with Patient Total time spent providing and/or coordinating discharge services: 20 minutes - Discharge Medications Prescriptions: Continued Albuterol Sulfate [Albuterol Sulfate Hfa] 4 puff IH Q4H PRN PRN Reason: Shortness Of Breath Cyclobenzaprine HCl 10 mg PO TID PRN PRN Reason: Muscle Spasm Duloxetine HCl 30 mg PO DAILY Erythromycin Base [Erythromycin] 250 mg PO TID Ferrous Sulfate [Iron] 325 mg PO DAILY Fluticasone/Salmeterol [Airduo Respiclick 232-14 Mcg] 1 puff IH BID Gabapentin [Neurontin] 300 mg PO TID HydrOXYzine [Atarax] 10 mg PO BID PRN PRN Reason: Anxiety Insulin Glargine,Hum.rec.anlog [Basaglar Kwikpen U-100] 20 unit SQ HS Insulin LISPRO [Admelog Solostar] 0 unit SQ TIDWM Lisinopril [Zestril] 10 mg PO DAILY Melatonin 10 mg PO HS PRN PRN Reason: Sleep Ondansetron ODT [Zofran ODT] 4 mg SL Q6H PRN PRN Reason: Nausea Venlafaxine HCl [Venlafaxine HCl ER] 75 mg PO DAILY Home Medications: Albuterol Sulfate [Albuterol Sulfate Hfa] 4 puff IH Q4H PRN 08/18/19 [History] Cyclobenzaprine HCl 10 mg PO TID PRN 08/18/19 [History] Duloxetine HCl 30 mg PO DAILY 08/18/19 [History] Erythromycin Base [Erythromycin] 250 mg PO TID 08/18/19 [History] Ferrous Sulfate [Iron] 325 mg PO DAILY 08/18/19 [History] Fluticasone/Salmeterol [Airduo Respiclick [id number] Mcg] 1 puff IH BID 08/18/19 [History] Gabapentin [Neurontin] 300 mg PO TID 08/18/19 [History] HydrOXYzine [Atarax] 10 mg PO BID PRN 08/18/19 [History] Insulin Glargine,Hum.rec.anlog [Basaglar Kwikpen U-100] 20 unit SQ HS 08/18/19 [History] Insulin LISPRO [Admelog Solostar] 0 unit SQ TIDWM 08/18/19 [History] Lisinopril [Zestril] 10 mg PO DAILY 08/18/19 [History] Melatonin 10 mg PO HS PRN 08/18/19 [History] Ondansetron ODT [Zofran ODT] 4 mg SL Q6H PRN 08/18/19 [History] Venlafaxine HCl [Venlafaxine HCl ER] 75 mg PO DAILY 08/18/19 [History] Allergies/Adverse Reactions: Allergy/AdvReac Type Severity Reaction Status Date / Time aspirin [ASA] Allergy Anaphylaxis Verified 08/18/19 10:40 codeine Allergy Anaphylaxis Verified 08/18/19 10:40 Fish Containing Products Allergy Hives Verified 08/18/19 10:40 morphine Allergy Anaphylaxis Verified 08/18/19 10:40 oseltamivir [From Tamiflu] Allergy Rash Verified 08/18/19 10:40 pendtaime Allergy Anaphylaxis Uncoded 08/18/19 10:40 silk tape AdvReac Itching Uncoded 08/18/19 10:40 Date of admission: 08/17/19 23:02 Primary care physician: Shikha Esposito MD Consults: 08/17/19 23:52 Consult to Diabetes Education [CONS] Routine Comment: Reason for Consult: Recurrent DKA 08/18/19 00:14 Consult to Nutrition [CONS] Routine Comment: Consulting Provider: NUTRITION Reason for Dietary Consult: MST Score - Constitutional Vitals: Temp Pulse Resp BP Pulse Ox 97.9 F 115 18 134/86 100 08/20/19 07:21 08/20/19 07:21 08/20/19 07:32 08/20/19 07:21 08/20/19 07:32 Exam: General: Patient is alert, oriented 3. Head: Atraumatic, normal inspection, normocephalic. Eye: EOMI, PERRLA, no scleral icterus noted. ENT: Mucous membranes moist. Neck: Normal inspection, Respiratory: No respiratory distress, rhonchi, or wheezes noted. Cardiovascular: Tachycardic and regular rhythm, S1 and S2 audible. No murmurs, rubs, or gallops. GI: Soft, nondistended, normal bowel sounds. No rigidity or rebound noted Extremities:No joint swelling, pedal edema, or tenderness noted. Neurological: Alert, oriented 3, no focal deficits. Psychiatric: normal affect, normal mood. Skin: Dry, intact, warm. Normal color. No rashes. - Patient Status Disposition: Home, Self-Care Condition: Good Functional capacity at discharge: independent ambulation Overall status at discharge: patient is back to baseline - Discharge Instructions Follow Up With: Shikha Esposito MD [Primary Care Provider] - 09/07/19 3:00 pm - Diet and Activity Activity: increase activity as tolerated Diet: diabetic diet
[2019-08-20 11:15] VITALS: BP 132/89
[2019-08-20] MEDS ORDERED: FLU Vac QV 19-20 (6Month+)/PF 0.5 ML SYRINGE IM ONE (13:02)
[2019-08-20] MEDS ORDERED: Insulin LISPRO 300 UNITS/3 ML VIAL SQ SCH (21:00)
[2019-08-20] MEDS ORDERED: Insulin DETEMIR 100 UNIT/ML X5UNITS SQ SCH (21:00)
== END 2019-08-20 13:30 | disposition home or self-care (01) ==
LOC: 2NNU → SUATTDRO 23:02
PROVIDERS: ADMIT Internal Medicine; ATTEND Internal Medicine

== ENCOUNTER 2019-09-12 23:23 | Observation (INO) ==
[2019-09-13 00:07] LABS: Basophils % 0.6 %; Eosinophils # 0.1 K/mcL (0.0-0.6); Eosinophils % 1.6 %; Hematocrit 38.7 % (37.5-50.1); Hemoglobin 13.1 g/dL (12.9-16.9); Immature Granulocytes % 0.3 % (0-4); Lymphocytes # 0.7 K/mcL (0.6-4.6); Mean Corpuscular HGB Conc 33.9 g/dL (31.6-35.5); Mean Corpuscular Hemoglobin 27.9 pg (28.0-33.3); Mean Corpuscular Volume 82.3 fL (83.0-100.0); Mean Platelet Volume 9.5 fL (9.4-12.4); Monocytes # 0.5 K/mcL (0.0-1.3); Monocytes % 7.1 %; Neutrophils # 5.6 K/mcL (1.6-8.9); Platelet Count 449 K/mcL (140-400); Red Cell Distribution Width 12.7 % (11.5-14.5); Segmented Neutrophils % 80.4 %
[2019-09-13 00:13] LABS: Acetaminophen < 10 mcg/mL (10-20); BUN/Creatinine Ratio 23 (6-26); Blood Urea Nitrogen 16 mg/dL (6-20); Calcium 9.3 mg/dL (8.6-10.3); Carbon Dioxide 20 mEq/L (23-29); Chloride 105 mEq/L (98-107); Ethanol < 10 mg/dL (Less than 10); Glucose 608 mg/dL (70-105); Osmolality,Calculated 311 (280-300); Potassium 4.8 mEq/L (3.5-5.1); Salicylate < 2.5 mg/dL (15.0-30.0); Sodium 136 mEq/L (136-145); eGFR For African Americans > 60 (> 60); eGFR For Non-African Americans > 60 (> 60)
[2019-09-13] MEDS ORDERED: 0.9 % Sodium Chloride 1,000 ML IVC ONE (00:16)
[2019-09-13 00:21] LABS: Bilirubin,Urine Negative (Negative); Blood,Urine Negative (Negative); Clarity,Urine Clear (Clear); Color,Urine Yellow (Yellow); Glucose,Urine (UA) >=1000 mg/dL (Normal); Ketones,Urine Trace mg/dL (Negative); Leukocyte Esterase,Urine Negative (Negative); Nitrite,Urine Negative (Negative); Protein,Urine Negative (Neg-Trace); Specific Gravity,Urine > 1.030 (1.010-1.025); Urobilinogen,Urine Normal (Normal)
[2019-09-13 00:23] LABS: Amphetamine Screen,Urine Positive ng/mL (Cutoff=1000); Barbiturate Screen,Urine Negative ng/mL (Cutoff=200); Benzodiazepines Screen,Urine Negative ng/mL (Cutoff=200); Cannabinoid Screen,Urine Negative ng/mL (Cutoff = 50); Cocaine Screen,Urine Negative ng/mL (Cutoff= 300); Opiate Screen,Urine Negative ng/mL (Cutoff=300); Phencyclidine Screen,Urine Negative ng/mL (Cutoff=25)
[2019-09-13] MEDS ORDERED: Insulin Regular, Human 100 UNIT/ML SQ ONE (00:33)
[2019-09-13 01:15] LABS: VBG HCO3 22 mEq/L (21-27); VBG PCO2 34 mmHg (41-51); VBG PH 7.43 pH Units (7.32-7.42); VBG PO2 123 mmHg (25-50)
[2019-09-13 01:49] LABS: Creatine Kinase 16 Units/L (30-223); Troponin I < 0.03 ng/mL (< 0.04)
[2019-09-13] MEDS ORDERED: *HR* Dextrose 50 % in Water (Syg) 50 ML SYRINGE IVP PRN ×2 (02:04→03:35)
[2019-09-13] MEDS ORDERED: Insulin Human Regular 100 UNIT in 0.9 % Sodium Chloride 100 ML IVC SCH ×2 (02:15→03:45)
[2019-09-13] MEDS ORDERED: Azithromycin 500 MG in 0.9 % Sodium Chloride 250 ML IVPB ONE (02:28)
[2019-09-13] MEDS ORDERED: cefTRIAXone 1,000 MG in Water for inj. (sterile) 10 ML IVP ONE (02:28)
[2019-09-13] MEDS ORDERED: Insulin LISPRO 300 UNITS/3 ML VIAL SQ PRN (03:35)
[2019-09-13] MEDS ORDERED: D5% in 0.45% NACL 1,000 ML IVC PRN (03:35)
[2019-09-13] MEDS ORDERED: Naloxone 0.4 MG/ML INJ IVP PRN (03:54)
[2019-09-13] MEDS: 0.9 % Sodium Chloride 1,000 ML IVC SCH ×16 (04:04→17:10)
[2019-09-13] MEDS: 0.45 % Sodium Chloride w/KCl 20 MEQ/1,000 ML MLS IVC SCH ×14 (04:11→17:10)
[2019-09-13 04:30] LABS: VBG Ionized Calcium 1.24 mmol/L (1.15-1.35)
[2019-09-13] MEDS: Ketorolac 15 MG/ML VIAL IVP PRN ×2 (04:48→14:58)
[2019-09-13 04:49] LABS: BUN/Creatinine Ratio 23 (6-26); Blood Urea Nitrogen 13 mg/dL (6-20); Calcium 9.5 mg/dL (8.6-10.3); Carbon Dioxide 22 mEq/L (23-29); Chloride 109 mEq/L (98-107); Glucose 193 mg/dL (70-105); Magnesium 2.2 mg/dL (1.6-2.6); Osmolality,Calculated 293 (280-300); Phosphorous 3.2 mg/dL (2.7-4.5); Potassium 3.8 mEq/L (3.5-5.1); Sodium 139 mEq/L (136-145); eGFR For African Americans > 60 (> 60); eGFR For Non-African Americans > 60 (> 60)
[2019-09-13] MEDS: *HR* Heparin 5,000 UNIT/ML VIAL SQ SCH ×2 (04:53→17:14)
[2019-09-13] MEDS: D5% in 0.45% NACL w KCl 20 MEQ/1,000 ML MLS IVC PRN ×2 (04:58→09:01)
[2019-09-13] MEDS ORDERED: *HR* HYDROcodone/Acet 10/325 mg TABLET PO PRN (06:17)
[2019-09-13] MEDS ORDERED: D5% in Water 1,000 ML IVC PRN (08:14)
[2019-09-13] MEDS ORDERED: *HR* LORazepam 2 MG/ML VIAL IVP ONE (08:16)
[2019-09-13] MEDS: Insulin DETEMIR 100 UNIT/ML X5UNITS SQ SCH ×2 (08:41→20:34)
[2019-09-13] MEDS: Insulin LISPRO 300 UNITS/3 ML VIAL SQ SCH ×2 (11:18→17:13)
[2019-09-13] MEDS ORDERED: Insulin LISPRO 300 UNITS/3 ML VIAL SQ SCH (21:00)
[2019-09-14 04:33] LABS: Basophils # 0.1 K/mcL (0.0-0.2); Basophils % 1.1 %; Eosinophils # 0.2 K/mcL (0.0-0.6); Eosinophils % 3.6 %; Hematocrit 37.8 % (37.5-50.1); Hemoglobin 13.1 g/dL (12.9-16.9); Immature Granulocytes % 0.2 % (0-4); Lymphocytes # 0.9 K/mcL (0.6-4.6); Mean Corpuscular HGB Conc 34.7 g/dL (31.6-35.5); Mean Corpuscular Hemoglobin 28.6 pg (28.0-33.3); Mean Corpuscular Volume 82.5 fL (83.0-100.0); Mean Platelet Volume 9.2 fL (9.4-12.4); Monocytes # 0.5 K/mcL (0.0-1.3); Monocytes % 8.8 %; Neutrophils # 3.6 K/mcL (1.6-8.9); Platelet Count 415 K/mcL (140-400); Red Blood Count 4.58 M/mcL (4.19-5.50); Red Cell Distribution Width 12.4 % (11.5-14.5); Segmented Neutrophils % 69.3 %; White Blood Count 5.2 K/mcL (4.3-11.1)
[2019-09-14 04:54] LABS: BUN/Creatinine Ratio 25 (6-26); Blood Urea Nitrogen 14 mg/dL (6-20); Calcium 8.9 mg/dL (8.6-10.3); Carbon Dioxide 25 mEq/L (23-29); Chloride 105 mEq/L (98-107); Glucose 102 mg/dL (70-105); Osmolality,Calculated 285 (280-300); Potassium 4.1 mEq/L (3.5-5.1); Sodium 137 mEq/L (136-145); eGFR For African Americans > 60 (> 60); eGFR For Non-African Americans > 60 (> 60)
[2019-09-14] MEDS: *HR* Heparin 5,000 UNIT/ML VIAL SQ SCH (06:35)
[2019-09-14] MEDS: Insulin DETEMIR 100 UNIT/ML X5UNITS SQ SCH (08:29)
[2019-09-14] MEDS: Ketorolac 15 MG/ML VIAL IVP PRN (08:41)
[2019-09-14] MEDS: Insulin LISPRO 300 UNITS/3 ML VIAL SQ SCH ×2 (08:44→11:16)
[2019-09-14 11:51] VITALS: BP 130/87
== END 2019-09-14 14:08 ==
LOC: 2NNU 23:23 → EMEROOARM 23:23 → 2NNU 09-13 02:35 → SUATTDRO 09-13 03:54
PROVIDERS: ADMIT Family Medicine; ATTEND Internal Medicine

== ENCOUNTER 2019-09-15 11:54 | Inpatient (IN) ==
[2019-09-14] MEDS: Insulin LISPRO 300 UNITS/3 ML VIAL SQ SCH ×2 (18:06→20:20)
[2019-09-14] MEDS: Acetaminophen 325 MG TABLET PO PRN (21:00)
[2019-09-14] MEDS: Insulin DETEMIR 100 UNIT/ML X5UNITS SQ SCH (21:20)
[2019-09-15] MEDS: hydrOXYzine pamoate 25 MG CAPSULE PO PRN ×2 (05:24→21:37)
[2019-09-15] MEDS: Insulin LISPRO 300 UNITS/3 ML VIAL SQ SCH ×4 (08:19→21:36)
[2019-09-15] MEDS: Insulin DETEMIR 100 UNIT/ML X5UNITS SQ SCH ×2 (08:52→21:36)
[~2019-09-15 11:54] MED LIST: *HR* Dextrose 50 % in Water (Syg) 50 ML SYRINGE IVP PRN; *HR* LORazepam 1 MG TABLET PO PRN; *HR* LORazepam 2 MG/ML VIAL IM PRN; D5% in Water 1,000 ML IVC PRN; Dextrose Gel 15 GM/37.5 ML TUBE PO PRN; Haloperidol Lactate 5 MG/ML VIAL IM PRN; MOM Conc 10 ML UD.LIQ PO PRN; Mag Hydrox/Al Hydrox/Simeth 30 ML UDC PO PRN
[2019-09-15] MEDS: Nicotine 2 MG GUM BC PRN ×2 (14:13→21:39)
[2019-09-15] MEDS: Gabapentin 300 MG CAPSULE PO SCH ×2 (14:13→21:37)
[2019-09-15] MEDS: traZODone 50 MG TABLET PO PRN (21:37)
[2019-09-16] MEDS: Gabapentin 300 MG CAPSULE PO SCH ×3 (09:27→20:55)
[2019-09-16] MEDS: Insulin LISPRO 300 UNITS/3 ML VIAL SQ SCH ×4 (09:28→20:55)
[2019-09-16] MEDS: Insulin DETEMIR 100 UNIT/ML X5UNITS SQ SCH ×2 (09:28→21:05)
[2019-09-16] MEDS: hydrOXYzine pamoate 25 MG CAPSULE PO PRN ×3 (09:35→21:32)
[2019-09-16] MEDS: Nicotine 2 MG GUM BC PRN ×3 (09:36→20:55)
[2019-09-16] MEDS: traZODone 50 MG TABLET PO PRN (20:55)
[2019-09-17] MEDS: Gabapentin 300 MG CAPSULE PO SCH ×3 (09:11→20:37)
[2019-09-17] MEDS: Insulin LISPRO 300 UNITS/3 ML VIAL SQ SCH ×4 (09:12→20:38)
[2019-09-17] MEDS: Insulin DETEMIR 100 UNIT/ML X5UNITS SQ SCH ×2 (09:13→20:38)
[2019-09-17] MEDS: hydrOXYzine pamoate 25 MG CAPSULE PO PRN ×2 (17:10→20:37)
[2019-09-17] MEDS: Acetaminophen 325 MG TABLET PO PRN (20:37)
[2019-09-17] MEDS: traZODone 50 MG TABLET PO PRN (20:37)
[2019-09-17] MEDS: Nicotine 2 MG GUM BC PRN (20:41)
[2019-09-18] MEDS ORDERED: Nicotine 21 MG PATCH.TD24 TD SCH (09:00)
[2019-09-18] MEDS: Insulin LISPRO 300 UNITS/3 ML VIAL SQ SCH ×5 (09:18→21:02)
[2019-09-18] MEDS: Insulin DETEMIR 100 UNIT/ML X5UNITS SQ SCH ×2 (09:19→21:01)
[2019-09-18] MEDS: Gabapentin 300 MG CAPSULE PO SCH ×3 (09:19→21:01)
[2019-09-18] MEDS: hydrOXYzine pamoate 25 MG CAPSULE PO PRN ×3 (13:12→21:01)
[2019-09-18] MEDS: Acetaminophen 325 MG TABLET PO PRN (15:14)
[2019-09-18] MEDS: Nicotine 21 MG PATCH.TD24 TD SCH (15:18)
[2019-09-18] MEDS: traZODone 50 MG TABLET PO PRN (21:01)
[2019-09-19] MEDS: Acetaminophen 325 MG TABLET PO PRN ×3 (08:17→22:44)
[2019-09-19] MEDS: Insulin LISPRO 300 UNITS/3 ML VIAL SQ SCH ×4 (08:19→21:27)
[2019-09-19] MEDS: Nicotine 21 MG PATCH.TD24 TD SCH (08:20)
[2019-09-19] MEDS: Insulin DETEMIR 100 UNIT/ML X5UNITS SQ SCH ×2 (08:21→21:29)
[2019-09-19] MEDS: Gabapentin 300 MG CAPSULE PO SCH ×3 (09:49→21:24)
[2019-09-19] MEDS: hydrOXYzine pamoate 25 MG CAPSULE PO PRN ×2 (16:28→23:03)
[2019-09-20] MEDS: Acetaminophen 325 MG TABLET PO PRN ×2 (06:21→19:54)
[2019-09-20] MEDS: Insulin LISPRO 300 UNITS/3 ML VIAL SQ SCH ×4 (08:59→21:37)
[2019-09-20] MEDS: Nicotine 21 MG PATCH.TD24 TD SCH (08:59)
[2019-09-20] MEDS: Gabapentin 300 MG CAPSULE PO SCH ×3 (09:01→21:33)
[2019-09-20] MEDS: Insulin DETEMIR 100 UNIT/ML X5UNITS SQ SCH (09:48)
[2019-09-20] MEDS: hydrOXYzine pamoate 25 MG CAPSULE PO PRN ×2 (13:06→21:40)
[2019-09-20] MEDS ORDERED: Insulin DETEMIR 100 UNIT/ML X5UNITS SQ SCH ×2 (21:00)
[2019-09-20] MEDS: traZODone 50 MG TABLET PO PRN (21:40)
[2019-09-21] MEDS: Gabapentin 300 MG CAPSULE PO SCH ×4 (09:32→20:35)
[2019-09-21] MEDS: Nicotine 21 MG PATCH.TD24 TD SCH (09:40)
[2019-09-21] MEDS: Insulin LISPRO 300 UNITS/3 ML VIAL SQ SCH ×6 (09:41→20:34)
[2019-09-21] MEDS: Insulin DETEMIR 100 UNIT/ML X5UNITS SQ SCH (09:41)
[2019-09-21] MEDS: hydrOXYzine pamoate 25 MG CAPSULE PO PRN (20:35)
[2019-09-21] MEDS: traZODone 50 MG TABLET PO PRN (20:35)
[2019-09-21] MEDS ORDERED: Insulin DETEMIR 100 UNIT/ML X5UNITS SQ SCH (21:00)
[2019-09-22] MEDS: Acetaminophen 325 MG TABLET PO PRN (08:04)
[2019-09-22] MEDS: Insulin LISPRO 300 UNITS/3 ML VIAL SQ SCH ×3 (08:47→12:04)
[2019-09-22] MEDS: Gabapentin 300 MG CAPSULE PO SCH (08:50)
[2019-09-22] MEDS: Nicotine 21 MG PATCH.TD24 TD SCH (08:51)
[2019-09-22 09:25] VITALS: BP 112/76
[2019-09-22] MEDS: Insulin DETEMIR 100 UNIT/ML X5UNITS SQ SCH (10:17)
[2019-09-22] MEDS: hydrOXYzine pamoate 25 MG CAPSULE PO PRN (10:32)
== END 2019-09-22 12:28 | disposition home or self-care (01) | DRG 751 ==
LOC: 1ANU → SUATTDRO 11:54
PROVIDERS: ADMIT Psychiatry & Neurology Psychiatry; ATTEND Psychiatry & Neurology Psychiatry

== ENCOUNTER 2019-09-30 15:04 | Observation (INO) ==
[2019-09-30 16:35] LABS: Basophils # 0.1 K/mcL (0.0-0.2); Eosinophils # 0.1 K/mcL (0.0-0.6); Eosinophils % 1.7 %; Hematocrit 40.2 % (37.5-50.1); Immature Granulocytes % 0.3 % (0-4); Lymphocytes # 0.9 K/mcL (0.6-4.6); Lymphocytes % 16.1 %; Mean Corpuscular HGB Conc 34.8 g/dL (31.6-35.5); Mean Corpuscular Hemoglobin 27.3 pg (28.0-33.3); Mean Corpuscular Volume 78.5 fL (83.0-100.0); Monocytes # 0.5 K/mcL (0.0-1.3); Monocytes % 8.4 %; Neutrophils # 4.1 K/mcL (1.6-8.9); Platelet Count 441 K/mcL (140-400); Red Blood Count 5.12 M/mcL (4.19-5.50); Red Cell Distribution Width 12.1 % (11.5-14.5); Segmented Neutrophils % 72.5 %; White Blood Count 5.7 K/mcL (4.3-11.1)
[2019-09-30 16:46] LABS: VBG HCO3 28 mEq/L (21-27); VBG PCO2 50 mmHg (41-51); VBG PH 7.36 pH Units (7.32-7.42); VBG PO2 78 mmHg (25-50)
[2019-09-30 16:59] LABS: BUN/Creatinine Ratio 27 (6-26); Blood Urea Nitrogen 15 mg/dL (6-20); Calcium 9.4 mg/dL (8.6-10.3); Carbon Dioxide 27 mEq/L (23-29); Chloride 105 mEq/L (98-107); Glucose 39 mg/dL (70-105); Osmolality,Calculated 284 (280-300); Sodium 138 mEq/L (136-145); eGFR For African Americans > 60 (> 60); eGFR For Non-African Americans > 60 (> 60)
[2019-09-30] MEDS ORDERED: 0.9 % Sodium Chloride 1,000 ML IVC ONE ×2 (17:02→17:05)
[2019-09-30] MEDS ORDERED: *HR* Dextrose 50 % in Water (Syg) 50 ML SYRINGE IVP ONE (17:02)
[2019-09-30] MEDS ORDERED: Ondansetron 4 MG/2 ML VIAL IVP PRN (17:38)
[2019-09-30] MEDS ORDERED: traMADol 50 MG TABLET PO PRN (17:38)
[2019-09-30] MEDS ORDERED: Naloxone 0.4 MG/ML INJ IVP PRN (17:38)
[2019-09-30 17:44] LABS: Bilirubin,Urine Negative (Negative); Blood,Urine Negative (Negative); Clarity,Urine Clear (Clear); Color,Urine Yellow (Yellow); Glucose,Urine (UA) 100 mg/dL (Normal); Ketones,Urine Negative (Negative); Leukocyte Esterase,Urine Negative (Negative); Nitrite,Urine Negative (Negative); PH,Urine 6.5 pH Units (5.0-8.0); Protein,Urine 30 mg/dL (Neg-Trace); Specific Gravity,Urine 1.027 (1.010-1.025); Urobilinogen,Urine Normal (Normal)
[2019-09-30] MEDS ORDERED: D5% in Water 1,000 ML IVC PRN (17:44)
[2019-09-30] MEDS ORDERED: Dextrose Gel 15 GM/37.5 ML TUBE PO PRN ×2 (17:44)
[2019-09-30] MEDS ORDERED: *HR* Dextrose 50 % in Water (Syg) 50 ML SYRINGE IVP PRN (17:44)
[2019-09-30 17:46] LABS: Bacteria,Urine None Seen per hpf (None-Few); Hyaline Casts,Urine None Seen per lpf (None-Few); RBC,Urine 0-3 per hpf (0-3); Squamous Epithelial Cell,Urine Many per lpf (None-Few)
[2019-09-30 17:59] LABS: Amphetamine Screen,Urine Negative ng/mL (Cutoff=1000); Barbiturate Screen,Urine Positive ng/mL (Cutoff=200); Benzodiazepines Screen,Urine Negative ng/mL (Cutoff=200); Cannabinoid Screen,Urine Negative ng/mL (Cutoff = 50); Cocaine Screen,Urine Negative ng/mL (Cutoff= 300); Opiate Screen,Urine Negative ng/mL (Cutoff=300); Phencyclidine Screen,Urine Negative ng/mL (Cutoff=25)
[2019-09-30 18:06] LABS: Phosphorous 3.8 mg/dL (2.7-4.5)
[2019-09-30 18:16] LABS: Sperm,Urine Present
[2019-09-30 19:07] LABS: Acetaminophen < 10 mcg/mL (10-20); Creatine Kinase 1599 Units/L (30-223); Salicylate < 2.5 mg/dL (15.0-30.0)
[2019-09-30] MEDS: *HR* Heparin 5,000 UNIT/ML VIAL SQ SCH (19:35)
[2019-09-30] MEDS: Ketorolac 15 MG/ML VIAL IVP SCH (19:45)
[2019-09-30] MEDS: Gabapentin 300 MG CAPSULE PO SCH (19:45)
[2019-09-30] MEDS: Ringers Solution, Lactated 1,000 ML IVC SCH (19:45)
[2019-09-30] MEDS: Insulin DETEMIR 100 UNIT/ML X5UNITS SQ SCH (20:53)
[2019-09-30] MEDS ORDERED: Ketorolac 15 MG/ML VIAL IVP ONE (22:21)
[2019-10-01 02:23] LABS: Basophils % 0.9 %; Eosinophils # 0.1 K/mcL (0.0-0.6); Eosinophils % 2.8 %; Hematocrit 35.1 % (37.5-50.1); Hemoglobin 12.6 g/dL (12.9-16.9); Immature Granulocytes % 0.2 % (0-4); Lymphocytes # 0.9 K/mcL (0.6-4.6); Lymphocytes % 19.5 %; Mean Corpuscular HGB Conc 35.9 g/dL (31.6-35.5); Mean Corpuscular Hemoglobin 27.6 pg (28.0-33.3); Mean Corpuscular Volume 76.8 fL (83.0-100.0); Mean Platelet Volume 9.4 fL (9.4-12.4); Monocytes # 0.4 K/mcL (0.0-1.3); Neutrophils # 3.2 K/mcL (1.6-8.9); Platelet Count 387 K/mcL (140-400); Red Blood Count 4.57 M/mcL (4.19-5.50); Red Cell Distribution Width 11.9 % (11.5-14.5); Segmented Neutrophils % 67.6 %; White Blood Count 4.7 K/mcL (4.3-11.1)
[2019-10-01] MEDS: Ringers Solution, Lactated 1,000 ML IVC SCH (02:25)
[2019-10-01] MEDS: Ketorolac 15 MG/ML VIAL IVP SCH ×2 (02:32→02:33)
[2019-10-01 02:40] LABS: BUN/Creatinine Ratio 19 (6-26); Blood Urea Nitrogen 12 mg/dL (6-20); Calcium 9.1 mg/dL (8.6-10.3); Carbon Dioxide 26 mEq/L (23-29); Chloride 100 mEq/L (98-107); Glucose 290 mg/dL (70-105); Osmolality,Calculated 288 (280-300); Potassium 4.1 mEq/L (3.5-5.1); Sodium 134 mEq/L (136-145); eGFR For African Americans > 60 (> 60); eGFR For Non-African Americans > 60 (> 60)
[2019-10-01 02:42] LABS: Magnesium 1.9 mg/dL (1.6-2.6); Phosphorous 3.9 mg/dL (2.7-4.5)
[2019-10-01] MEDS: *HR* Heparin 5,000 UNIT/ML VIAL SQ SCH ×2 (05:42→17:29)
[2019-10-01] MEDS: Ibuprofen 400 MG TABLET PO PRN ×2 (05:44→13:56)
[2019-10-01] MEDS: hydrOXYzine pamoate 25 MG CAPSULE PO PRN ×2 (05:49→20:09)
[2019-10-01] MEDS: Gabapentin 300 MG CAPSULE PO SCH ×3 (08:36→20:09)
[2019-10-01] MEDS: Insulin LISPRO 300 UNITS/3 ML VIAL SQ SCH ×3 (08:37→17:29)
[2019-10-01] MEDS: Insulin DETEMIR 100 UNIT/ML X5UNITS SQ SCH ×2 (08:37→20:09)
[2019-10-01] MEDS ORDERED: Metoprolol XL (24 HR) Succ 25 MG TAB.ER.24H PO SCH (09:00)
[2019-10-01] MEDS: Ketorolac 15 MG/ML VIAL IVP PRN ×2 (09:40→20:15)
[2019-10-01 17:17] LABS: Chlamydia Trachomatis DNA Ur NOT DETECTED (Not Detect)
[2019-10-01] MEDS: Acetaminophen 325 MG TABLET PO PRN (18:48)
[2019-10-01] MEDS: Saline Nasal Spray 44 ML BOTTLE NS PRN (22:19)
[2019-10-02] MEDS: *HR* Heparin 5,000 UNIT/ML VIAL SQ SCH (05:38)
[2019-10-02] MEDS: Ketorolac 15 MG/ML VIAL IVP PRN (05:44)
[2019-10-02 06:55] LABS: Hematocrit 39.4 % (37.5-50.1); Mean Corpuscular HGB Conc 35.5 g/dL (31.6-35.5); Mean Corpuscular Hemoglobin 27.9 pg (28.0-33.3); Mean Corpuscular Volume 78.5 fL (83.0-100.0); Mean Platelet Volume 9.4 fL (9.4-12.4); Platelet Count 405 K/mcL (140-400); Red Blood Count 5.02 M/mcL (4.19-5.50); Red Cell Distribution Width 12.2 % (11.5-14.5); White Blood Count 5.9 K/mcL (4.3-11.1)
[2019-10-02 07:10] LABS: BUN/Creatinine Ratio 23 (6-26); Blood Urea Nitrogen 13 mg/dL (6-20); Calcium 9.4 mg/dL (8.6-10.3); Carbon Dioxide 28 mEq/L (23-29); Chloride 101 mEq/L (98-107); Glucose 181 mg/dL (70-105); Osmolality,Calculated 289 (280-300); Potassium 4.3 mEq/L (3.5-5.1); Sodium 137 mEq/L (136-145); eGFR For African Americans > 60 (> 60); eGFR For Non-African Americans > 60 (> 60)
[2019-10-02] MEDS: Acetaminophen 325 MG TABLET PO PRN (07:58)
[2019-10-02] MEDS: Gabapentin 300 MG CAPSULE PO SCH (07:58)
[2019-10-02] MEDS: hydrOXYzine pamoate 25 MG CAPSULE PO PRN (07:58)
[2019-10-02] MEDS: Insulin DETEMIR 100 UNIT/ML X5UNITS SQ SCH (07:59)
[2019-10-02] MEDS: Insulin LISPRO 300 UNITS/3 ML VIAL SQ SCH (07:59)
[2019-10-02] MEDS: Saline Nasal Spray 44 ML BOTTLE NS PRN (07:59)
[2019-10-02 08:54] VITALS: BP 128/88
[2019-10-02] MEDS ORDERED: Metoprolol XL (24 HR) Succ 25 MG TAB.ER.24H PO SCH (09:00)
[2019-10-02] MEDS: Ibuprofen 400 MG TABLET PO PRN (09:32)
== END 2019-10-02 11:30 | disposition home or self-care (01) ==
LOC: 3ANU 15:04 → EMEROOARM 15:04 → SUATTDRO 18:27 → 3ANU 18:51
PROVIDERS: ADMIT Internal Medicine; ATTEND Internal Medicine

== ENCOUNTER 2019-10-11 18:01 | Observation (INO) ==
[2019-10-11] MEDS ORDERED: Isovue-370 500 ML BOTTLE IVP ONE (18:35)
[2019-10-11] MEDS ORDERED: 0.9 % Sodium Chloride 1,000 ML IVC ONE (18:35)
[2019-10-11] MEDS ORDERED: *HR* HYDROmorphone (PF) 1 MG/ML SYRINGE IVP ONE (18:35)
[2019-10-11 18:49] LABS: VBG HCO3 24 mEq/L (21-27); VBG PCO2 33 mmHg (41-51); VBG PH 7.48 pH Units (7.32-7.42); VBG PO2 60 mmHg (25-50)
[2019-10-11 18:49] LABS: Basophils # 0.1 K/mcL (0.0-0.2); Basophils % 0.9 %; Eosinophils # 0.1 K/mcL (0.0-0.6); Eosinophils % 1.7 %; Hematocrit 38.9 % (37.5-50.1); Hemoglobin 13.8 g/dL (12.9-16.9); Immature Granulocytes % 0.4 % (0-4); Lymphocytes # 0.7 K/mcL (0.6-4.6); Lymphocytes % 13.8 %; Mean Corpuscular HGB Conc 35.5 g/dL (31.6-35.5); Mean Corpuscular Hemoglobin 27.7 pg (28.0-33.3); Mean Platelet Volume 9.8 fL (9.4-12.4); Monocytes # 0.5 K/mcL (0.0-1.3); Monocytes % 8.7 %; Neutrophils # 3.9 K/mcL (1.6-8.9); Platelet Count 381 K/mcL (140-400); Red Blood Count 4.99 M/mcL (4.19-5.50); Red Cell Distribution Width 12.3 % (11.5-14.5); Segmented Neutrophils % 74.5 %; White Blood Count 5.3 K/mcL (4.3-11.1)
[2019-10-11 19:26] LABS: Alanine Aminotransferase 10 Units/L (7-52); Albumin 4.1 g/dL (3.5-5.7); Albumin/Globulin Ratio 1.7 (1.1-2.2); Alkaline Phosphatase 138 Units/L (34-104); Aspartate Amino Transferase 8 Units/L (13-39); BUN/Creatinine Ratio 19 (6-26); Bilirubin,Indirect 0.3 mg/dL (0.0-1.0); Bilirubin,Total 0.3 mg/dL (0.3-1.0); Blood Urea Nitrogen 15 mg/dL (6-20); Calcium 9.5 mg/dL (8.6-10.3); Carbon Dioxide 24 mEq/L (23-29); Chloride 92 mEq/L (98-107); Globulin 2.4 g/dL (2.4-3.5); Glucose 808 mg/dL (70-105); Lipase 27 Units/L (11-82); Osmolality,Calculated 300 (280-300); Potassium 5.2 mEq/L (3.5-5.1); Sodium 125 mEq/L (136-145); Total Protein 6.5 g/dL (6.4-8.9); eGFR For African Americans > 60 (> 60); eGFR For Non-African Americans > 60 (> 60)
[2019-10-11 19:48] LABS: Bilirubin,Urine Negative (Negative); Blood,Urine Negative (Negative); Clarity,Urine Clear (Clear); Color,Urine Yellow (Yellow); Glucose,Urine (UA) >=1000 mg/dL (Normal); Ketones,Urine 15 mg/dL (Negative); Leukocyte Esterase,Urine Negative (Negative); Nitrite,Urine Negative (Negative); Protein,Urine Negative (Neg-Trace); Specific Gravity,Urine 1.029 (1.010-1.025); Urobilinogen,Urine Normal (Normal)
[2019-10-11] MEDS ORDERED: Insulin Human Regular 10 UNIT in 0.9 % Sodium Chloride 10 ML IV ONE (20:03)
[2019-10-11] MEDS: 0.9 % Sodium Chloride 1,000 ML IVC SCH ×3 (20:21→23:00)
[2019-10-11] MEDS ORDERED: cefTRIAXone 1,000 MG in Water for inj. (sterile) 10 ML IVP ONE (20:29)
[2019-10-11] MEDS ORDERED: Naloxone 0.4 MG/ML INJ IVP PRN (23:13)
[2019-10-11] MEDS ORDERED: Insulin Regular, Human 100 UNIT/ML IV PRN ×2 (23:13)
[2019-10-11] MEDS ORDERED: D5% in 0.45% NACL 1,000 ML IVC PRN (23:13)
[2019-10-11] MEDS ORDERED: *HR* Dextrose 50 % in Water (Syg) 50 ML SYRINGE IVP PRN (23:13)
[2019-10-11] MEDS ORDERED: D5% in 0.45% NACL w KCl 20 MEQ/1,000 ML MLS IVC PRN (23:13)
[2019-10-11] MEDS ORDERED: 0.45 % Sodium Chloride w/KCl 20 MEQ/1,000 ML MLS IVC PRN (23:15)
[2019-10-11] MEDS ORDERED: levoFLOXacin 750 MG/150 ML 750 MG/150 ML BAG IVPB SCH (23:30)
[2019-10-12] MEDS ORDERED: Naloxone 0.4 MG/ML INJ IVP PRN (00:29)
[2019-10-12] MEDS ORDERED: D5% in Water 1,000 ML IVC PRN (00:31)
[2019-10-12] MEDS ORDERED: Dextrose Gel 15 GM/37.5 ML TUBE PO PRN ×2 (00:31)
[2019-10-12] MEDS ORDERED: *HR* Dextrose 50 % in Water (Syg) 50 ML SYRINGE IVP PRN (00:31)
[2019-10-12] MEDS ORDERED: 0.9 % Sodium Chloride 1,000 ML IVC SCH (00:45)
[2019-10-12 00:59] LABS: Amphetamine Screen,Urine Negative ng/mL (Cutoff=1000); Barbiturate Screen,Urine Positive ng/mL (Cutoff=200); Benzodiazepines Screen,Urine Negative ng/mL (Cutoff=200); Cannabinoid Screen,Urine Negative ng/mL (Cutoff = 50); Cocaine Screen,Urine Negative ng/mL (Cutoff= 300); Opiate Screen,Urine Negative ng/mL (Cutoff=300); Phencyclidine Screen,Urine Negative ng/mL (Cutoff=25)
[2019-10-12 01:00] LABS: Magnesium 1.9 mg/dL (1.6-2.6); Phosphorous 3.7 mg/dL (2.7-4.5)
[2019-10-12] MEDS: Insulin DETEMIR 100 UNIT/ML X5UNITS SQ SCH ×3 (01:06→21:18)
[2019-10-12] MEDS: Insulin LISPRO 300 UNITS/3 ML VIAL SQ SCH ×4 (01:08→18:22)
[2019-10-12 02:11] LABS: Adenovirus Not Detected (Not Detect); Bordetella Pertussis Not Detected (Not Detect); Chlamydophila pneumoniae Not Detected (Not Detect); Coronavirus 229E Not Detected (Not Detect); Coronavirus HKU1 Not Detected (Not Detect); Coronavirus NL63 Not Detected (Not Detect); Coronavirus OC43 Not Detected (Not Detect); Human Metapneumovirus Not Detected (Not Detect); Human Rhinovirus/Enterovirus Not Detected (Not Detect); Influenza A Subtype 2009 H1 Not Detected (Not Detect); Influenza A Untypeable Not Detected (Not Detect); Influenza B Not Detected (Not Detect); Mycoplasma pneumoniae Not Detected (Not Detect); Parainfluenza Virus 1 Not Detected (Not Detect); Parainfluenza Virus 2 Not Detected (Not Detect); Parainfluenza Virus 3 Not Detected (Not Detect); Parainfluenza Virus 4 Not Detected (Not Detect); Respiratory Syncytial Virus Not Detected (Not Detect)
[2019-10-12] MEDS: Insulin Human Regular 100 UNIT in 0.9 % Sodium Chloride 100 ML IVC SCH (03:15)
[2019-10-12 03:43] LABS: Basophils # 0.1 K/mcL (0.0-0.2); Basophils % 0.8 %; Eosinophils # 0.2 K/mcL (0.0-0.6); Eosinophils % 2.2 %; Hematocrit 39.6 % (37.5-50.1); Hemoglobin 13.9 g/dL (12.9-16.9); Immature Granulocytes % 0.3 % (0-4); Mean Corpuscular HGB Conc 35.1 g/dL (31.6-35.5); Mean Corpuscular Hemoglobin 27.1 pg (28.0-33.3); Mean Corpuscular Volume 77.3 fL (83.0-100.0); Mean Platelet Volume 9.3 fL (9.4-12.4); Monocytes # 0.6 K/mcL (0.0-1.3); Neutrophils # 5.5 K/mcL (1.6-8.9); Platelet Count 397 K/mcL (140-400); Red Blood Count 5.12 M/mcL (4.19-5.50); Red Cell Distribution Width 12.4 % (11.5-14.5); Segmented Neutrophils % 75.7 %; White Blood Count 7.3 K/mcL (4.3-11.1)
[2019-10-12 03:47] LABS: Prothrombin Time 10.9 Seconds (9.4-12.1)
[2019-10-12 04:30] LABS: Alanine Aminotransferase 10 Units/L (7-52); Albumin/Globulin Ratio 1.7 (1.1-2.2); Alkaline Phosphatase 125 Units/L (34-104); Aspartate Amino Transferase 9 Units/L (13-39); BUN/Creatinine Ratio 17 (6-26); Bilirubin,Total 0.2 mg/dL (0.3-1.0); Blood Urea Nitrogen 9 mg/dL (6-20); Calcium 9.1 mg/dL (8.6-10.3); Carbon Dioxide 26 mEq/L (23-29); Chloride 104 mEq/L (98-107); Chol/HDL Ratio 4.8 (0-4.9); Cholesterol 148 mg/dL (< 200); Gamma Glutamyl Transpeptidase 22 Units/L (7-64); Globulin 2.3 g/dL (2.4-3.5); Glucose 72 mg/dL (70-105); HDL Cholesterol 31 mg/dL (40-59); LDL Cholesterol,Calculated 81 mg/dL (0-99); Osmolality,Calculated 283 (280-300); Potassium 3.7 mEq/L (3.5-5.1); Sodium 138 mEq/L (136-145); Total Protein 6.3 g/dL (6.4-8.9); Triglycerides 181 mg/dL (< 150); eGFR For African Americans > 60 (> 60); eGFR For Non-African Americans > 60 (> 60)
[2019-10-12 05:53] LABS: HIV-1&2 Antibody & p24 Ag Reactive (Nonreactive)
[2019-10-12] MEDS: *HR* Heparin 5,000 UNIT/ML VIAL SQ SCH ×2 (06:27→15:47)
[2019-10-12 07:15] LABS: Chlamydia Trachomatis DNA Ur NOT DETECTED (Not Detect)
[2019-10-12] MEDS: Gabapentin 300 MG CAPSULE PO SCH ×3 (09:01→21:04)
[2019-10-12] MEDS ORDERED: Ketorolac 15 MG/ML VIAL IVP ONE (10:27)
[2019-10-12 11:00] LABS: Estimated Average Glucose 258 mg/dl
[2019-10-12] MEDS ORDERED: Insulin LISPRO 300 UNITS/3 ML VIAL SQ SCH (21:00)
[2019-10-12] MEDS: traMADol 50 MG TABLET PO PRN (21:04)
[2019-10-12 22:08] LABS: Hepatitis B Surface Antibody < 3.10 mIU/mL
[2019-10-12 22:19] LABS: Hepatitis B Surface Antigen Nonreactive (Nonreactive)
[2019-10-12 22:48] LABS: Hepatitis C Virus Antibody Nonreactive (Nonreactive)
[2019-10-13 02:03] LABS: HIV-1&2 Antibody & p24 Ag Reactive (Nonreactive)
[2019-10-13] MEDS: Insulin Human Regular 100 UNIT in 0.9 % Sodium Chloride 100 ML IVC SCH (02:59)
[2019-10-13 05:54] LABS: BUN/Creatinine Ratio 26 (6-26); Blood Urea Nitrogen 14 mg/dL (6-20); Calcium 9.1 mg/dL (8.6-10.3); Carbon Dioxide 27 mEq/L (23-29); Chloride 104 mEq/L (98-107); Glucose 100 mg/dL (70-105); Osmolality,Calculated 291 (280-300); Potassium 3.9 mEq/L (3.5-5.1); Sodium 140 mEq/L (136-145); eGFR For African Americans > 60 (> 60); eGFR For Non-African Americans > 60 (> 60)
[2019-10-13] MEDS: *HR* Heparin 5,000 UNIT/ML VIAL SQ SCH (05:55)
[2019-10-13] MEDS: Insulin LISPRO 300 UNITS/3 ML VIAL SQ SCH ×2 (08:10→12:17)
[2019-10-13] MEDS: Insulin DETEMIR 100 UNIT/ML X5UNITS SQ SCH (08:14)
[2019-10-13] MEDS: Gabapentin 300 MG CAPSULE PO SCH ×2 (08:14→14:22)
[2019-10-13] MEDS ORDERED: Metoprolol XL (24 HR) Succ 50 MG TAB.ER.24H PO SCH (08:50)
[2019-10-13 11:19] VITALS: BP 136/87
[2019-10-13] MEDS ORDERED: *HR* Metoprolol 5 MG/5 ML VIAL IVP ONE (13:01)
[2019-10-13] MEDS ORDERED: 0.9 % Sodium Chloride 1,000 ML IVC ONE (13:02)
[2019-10-13] MEDS ORDERED: Insulin DETEMIR 100 UNIT/ML X5UNITS SQ ONE (13:37)
[2019-10-13] MEDS ORDERED: hydrOXYzine pamoate 25 MG CAPSULE PO PRN (13:50)
[2019-10-13] MEDS: traMADol 50 MG TABLET PO PRN (14:28)
[2019-10-13 18:01] LABS: HIV-1 Ab Supplemental NEGATIVE (Negative); HIV-2 Ab Supplemental NEGATIVE (Negative)
[2019-10-13] MEDS ORDERED: Insulin DETEMIR 100 UNIT/ML X5UNITS SQ SCH (21:00)
[2019-10-14 19:38] LABS: CD3 Percent 80 % (62-87); CD8 Percent 40 % (15-46)
[2019-10-16 07:44] LABS: HIV-1 Viral Load Interp NOT DETECTED (Not Detected)
[2019-10-18 10:39] LABS: HIV-1 Genotype by Sequencing INDETERMINATE
== END 2019-10-13 16:00 | disposition other institution (70) ==
LOC: 2NNU 18:01 → EMEROOARM 18:01 → SUATTDRO 20:48 → 2NNU 21:20
PROVIDERS: ADMIT Internal Medicine; ATTEND Internal Medicine

== ENCOUNTER 2021-05-21 17:04 | Observation (INO) ==
[2021-05-21 19:27] LABS: VBG HCO3 19 mEq/L (21-27); VBG PCO2 26 mmHg (41-51); VBG PH 7.47 pH Units (7.32-7.42); VBG PO2 193 mmHg (25-50)
[2021-05-21 19:37] LABS: BUN/Creatinine Ratio 27 (6-26); Blood Urea Nitrogen 23 mg/dL (6-20); Calcium 8.7 mg/dL (8.6-10.3); Carbon Dioxide 17 mEq/L (23-29); Chloride 108 mEq/L (98-107); Glucose 160 mg/dL (70-105); Osmolality,Calculated 301 (280-300); Potassium 4.4 mEq/L (3.5-5.1); Sodium 142 mEq/L (136-145); eGFR For African Americans > 60 (> 60); eGFR For Non-African Americans > 60 (> 60)
[2021-05-21] MEDS ORDERED: Naloxone 0.4 MG/ML INJ IVP PRN (19:58)
[2021-05-21] MEDS ORDERED: Melatonin 3 MG TABLET PO PRN (20:03)
[2021-05-21] MEDS ORDERED: Acetaminophen 325 MG TABLET PO PRN (20:03)
[2021-05-21] MEDS ORDERED: Insulin Regular, Human 100 UNIT/ML IV PRN (20:11)
[2021-05-21] MEDS ORDERED: D5% in 0.45% NACL 1,000 ML IVC PRN (20:11)
[2021-05-21] MEDS ORDERED: 0.9 % Sodium Chloride 1,000 ML IVC SCH ×2 (20:15)
[2021-05-21] MEDS ORDERED: 0.45 % Sodium Chloride w/KCl 20 MEQ/1,000 ML MLS IVC SCH ×2 (20:15)
[2021-05-21] MEDS: D5% in 0.45% NACL w KCl 20 MEQ/1,000 ML MLS IVC PRN (20:24)
[2021-05-21] MEDS: Ondansetron 4 MG/2 ML VIAL IVP PRN (20:25)
[2021-05-21] MEDS ORDERED: Chloraseptic Spray 177 ML BOTTLE MM PRN (21:18)
[2021-05-21] MEDS ORDERED: *HR* Promethazine 25 MG/ML VIAL IM PRN (21:19)
[2021-05-21] MEDS: Gabapentin 300 MG CAPSULE PO SCH (22:24)
[2021-05-21 23:16] LABS: Hematocrit 39.4 % (37.5-50.1); Hemoglobin 13.3 g/dL (12.9-16.9); Mean Corpuscular HGB Conc 33.8 g/dL (31.6-35.5); Mean Corpuscular Hemoglobin 26.4 pg (28.0-33.3); Mean Corpuscular Volume 78.3 fL (83.0-100.0); Mean Platelet Volume 9.6 fL (9.4-12.4); Platelet Count 421 K/mcL (140-400); Red Blood Count 5.03 M/mcL (4.19-5.50)
[2021-05-21 23:36] LABS: BUN/Creatinine Ratio 23 (6-26); Blood Urea Nitrogen 19 mg/dL (6-20); Calcium 8.7 mg/dL (8.6-10.3); Carbon Dioxide 19 mEq/L (23-29); Chloride 108 mEq/L (98-107); Glucose 209 mg/dL (70-105); Osmolality,Calculated 302 (280-300); Potassium 4.3 mEq/L (3.5-5.1); Sodium 142 mEq/L (136-145); eGFR For African Americans > 60 (> 60); eGFR For Non-African Americans > 60 (> 60)
[2021-05-22] MEDS: D5% in 0.45% NACL w KCl 20 MEQ/1,000 ML MLS IVC PRN ×2 (00:15→03:51)
[2021-05-22 03:16] LABS: VBG HCO3 23 mEq/L (21-27); VBG PCO2 34 mmHg (41-51); VBG PH 7.42 pH Units (7.32-7.42); VBG PO2 160 mmHg (25-50)
[2021-05-22 03:23] LABS: BUN/Creatinine Ratio 20 (6-26); Blood Urea Nitrogen 15 mg/dL (6-20); Calcium 8.5 mg/dL (8.6-10.3); Carbon Dioxide 23 mEq/L (23-29); Chloride 112 mEq/L (98-107); Glucose 168 mg/dL (70-105); Osmolality,Calculated 295 (280-300); Potassium 3.5 mEq/L (3.5-5.1); Sodium 140 mEq/L (136-145); eGFR For African Americans > 60 (> 60); eGFR For Non-African Americans > 60 (> 60)
[2021-05-22] MEDS ORDERED: Dextrose Gel 15 GM/37.5 ML TUBE PO PRN ×2 (04:14)
[2021-05-22] MEDS ORDERED: D5% in Water 1,000 ML IVC PRN (04:14)
[2021-05-22] MEDS ORDERED: Insulin DETEMIR 100 UNIT/ML X5UNITS SUBQ SCH (04:15)
[2021-05-22] MEDS: *HR* Dextrose 50 % in Water (Vial) 50 ML VIAL IVP PRN ×2 (05:26→06:00)
[2021-05-22] MEDS: Gabapentin 300 MG CAPSULE PO SCH ×3 (07:37→21:14)
[2021-05-22] MEDS: Insulin LISPRO 300 UNITS/3 ML VIAL SUBQ SCH ×3 (07:59→17:11)
[2021-05-22] MEDS: Ondansetron 4 MG/2 ML VIAL IVP PRN (08:02)
[2021-05-22] MEDS: Metoclopramide 10 MG/2 ML VIAL IVP SCH ×2 (11:45→17:12)
[2021-05-22] MEDS: Ringers Solution, Lactated 1,000 ML IVC SCH (15:36)
[2021-05-22] MEDS: Pantoprazole 40 MG VIAL IVP SCH (21:14)
[2021-05-23] MEDS: Metoclopramide 10 MG/2 ML VIAL IVP SCH ×3 (00:04→11:58)
[2021-05-23] MEDS: Insulin LISPRO 300 UNITS/3 ML VIAL SUBQ SCH ×5 (00:29→11:59)
[2021-05-23] MEDS: Pantoprazole 40 MG VIAL IVP SCH (05:05)
[2021-05-23] MEDS: Ringers Solution, Lactated 1,000 ML IVC SCH ×2 (05:05→15:25)
[2021-05-23 06:08] LABS: Basophils # 0.1 K/mcL (0.0-0.2); Basophils % 0.8 %; Eosinophils # 0.1 K/mcL (0.0-0.6); Eosinophils % 1.3 %; Hematocrit 35.7 % (37.5-50.1); Immature Granulocytes % 0.2 % (0-4); Lymphocytes # 1.3 K/mcL (0.6-4.6); Lymphocytes % 14.7 %; Mean Corpuscular HGB Conc 32.5 g/dL (31.6-35.5); Mean Corpuscular Hemoglobin 26.1 pg (28.0-33.3); Mean Corpuscular Volume 80.2 fL (83.0-100.0); Mean Platelet Volume 9.4 fL (9.4-12.4); Monocytes # 0.5 K/mcL (0.0-1.3); Monocytes % 5.9 %; Neutrophils # 6.7 K/mcL (1.6-8.9); Platelet Count 348 K/mcL (140-400); Red Blood Count 4.45 M/mcL (4.19-5.50); Red Cell Distribution Width 15.3 % (11.5-14.5); Segmented Neutrophils % 77.1 %; White Blood Count 8.8 K/mcL (4.3-11.1)
[2021-05-23 06:09] LABS: Hemoglobin 11.6 g/dL (12.9-16.9)
[2021-05-23 06:49] LABS: BUN/Creatinine Ratio 13 (6-26); Blood Urea Nitrogen 11 mg/dL (6-20); Calcium 8.7 mg/dL (8.6-10.3); Carbon Dioxide 22 mEq/L (23-29); Chloride 101 mEq/L (98-107); Glucose 463 mg/dL (70-105); Osmolality,Calculated 296 (280-300); Potassium 4.7 mEq/L (3.5-5.1); Sodium 133 mEq/L (136-145); eGFR For African Americans > 60 (> 60); eGFR For Non-African Americans > 60 (> 60)
[2021-05-23] MEDS: Gabapentin 300 MG CAPSULE PO SCH ×2 (08:40→15:26)
[2021-05-23] MEDS ORDERED: Insulin DETEMIR 100 UNIT/ML X5UNITS SUBQ SCH (09:00)
[2021-05-23 15:14] VITALS: BP 109/64
== END 2021-05-23 16:41 | disposition home or self-care (01) ==
LOC: 2NNU → SUATTDRO 18:39 → 2ANU 05-23 05:57
PROVIDERS: ADMIT Internal Medicine; ATTEND Internal Medicine

== ENCOUNTER 2022-03-23 00:54 | Observation (INO) ==
[2022-03-23] MEDS ORDERED: Acetaminophen 325 MG TABLET PO PRN (04:45)
[2022-03-23] MEDS ORDERED: Naloxone 0.4 MG/ML INJ IVP PRN (04:45)
[2022-03-23 06:14] LABS: Basophils % 0.2 %; Eosinophils % 0.1 %; Hematocrit 34.5 % (37.5-50.1); Hemoglobin 11.5 g/dL (12.9-16.9); Immature Granulocytes % 0.3 % (0-4); Lymphocytes # 0.8 K/mcL (0.6-4.6); Lymphocytes % 7.2 %; Mean Corpuscular HGB Conc 33.3 g/dL (31.6-35.5); Mean Corpuscular Hemoglobin 26.9 pg (28.0-33.3); Mean Corpuscular Volume 80.6 fL (83.0-100.0); Mean Platelet Volume 9.5 fL (9.4-12.4); Monocytes # 0.6 K/mcL (0.0-1.3); Monocytes % 5.8 %; Neutrophils # 9.1 K/mcL (1.6-8.9); Platelet Count 340 K/mcL (140-400); Red Blood Count 4.28 M/mcL (4.19-5.50); Red Cell Distribution Width 13.6 % (11.5-14.5); Segmented Neutrophils % 86.4 %; White Blood Count 10.5 K/mcL (4.3-11.1)
[2022-03-23 06:21] LABS: INR 1.1; Prothrombin Time 12.1 Seconds (9.4-12.1)
[2022-03-23 06:28] LABS: VBG HCO3 18 mEq/L (21-27); VBG PCO2 34 mmHg (41-51); VBG PH 7.33 pH Units (7.32-7.42); VBG PO2 56 mmHg (25-50)
[2022-03-23] MEDS ORDERED: D5% in 0.45% NACL 1,000 ML IVC PRN (06:42)
[2022-03-23] MEDS ORDERED: Insulin Regular, Human 100 UNIT/ML IV PRN ×3 (06:42→11:26)
[2022-03-23] MEDS ORDERED: *HR* Dextrose 50 % in Water (Syg) 50 ML SYRINGE IVP PRN (06:42)
[2022-03-23] MEDS ORDERED: D5% in 0.45% NACL w KCl 20 MEQ/1,000 ML MLS IVC SCH (07:00)
[2022-03-23 07:12] LABS: Alanine Aminotransferase 8 Units/L (7-52); Albumin 3.3 g/dL (3.5-5.7); Albumin/Globulin Ratio 1.7 (1.1-2.2); Alkaline Phosphatase 107 Units/L (34-104); Aspartate Amino Transferase 9 Units/L (13-39); BUN/Creatinine Ratio 17 (6-26); Bilirubin,Direct 0.1 mg/dL (0.0-0.2); Bilirubin,Indirect 0.3 mg/dL (0.0-1.0); Bilirubin,Total 0.4 mg/dL (0.3-1.0); Blood Urea Nitrogen 13 mg/dL (6-20); Calcium 8.1 mg/dL (8.6-10.3); Carbon Dioxide 19 mEq/L (23-29); Chloride 104 mEq/L (98-107); Chol/HDL Ratio 3.6 (0-4.9); Cholesterol 128 mg/dL (< 200); Globulin 1.9 g/dL (2.4-3.5); Glucose 163 mg/dL (70-105); HDL Cholesterol 36 mg/dL (40-59); LDL Cholesterol,Calculated 73 mg/dL (< 100); Magnesium 1.8 mg/dL (1.6-2.6); Osmolality,Calculated 286 (280-300); Phosphorous 2.8 mg/dL (2.7-4.5); Potassium 4.1 mEq/L (3.5-5.1); Sodium 136 mEq/L (136-145); Total Protein 5.2 g/dL (6.4-8.9); Triglycerides 96 mg/dL (< 150); eGFR For African Americans > 60 (> 60); eGFR For Non-African Americans > 60 (> 60)
[2022-03-23 07:34] LABS: Thyroid Stimulating Hormone 0.687 mcIU/mL (0.340-5.600)
[2022-03-23] MEDS ORDERED: Dextrose 4 GM Chewable Tablets PO PRN ×2 (08:12)
[2022-03-23] MEDS ORDERED: D5% in Water 1,000 ML IVC PRN (08:12)
[2022-03-23] MEDS ORDERED: Insulin DETEMIR 100 UNIT/ML X5UNITS SUBQ SCH ×2 (08:15→17:05)
[2022-03-23 11:31] LABS: Beta-Hydroxybutyric Acid > 2.00 mmol/L (0.02-0.27)
[2022-03-23] MEDS: Insulin LISPRO 300 UNITS/3 ML VIAL SUBQ SCH ×2 (11:57→17:20)
[2022-03-23] MEDS: Ondansetron 4 MG/2 ML VIAL IVP PRN ×2 (12:24→18:38)
[2022-03-23 12:49] LABS: Procalcitonin 1.16 ng/mL (0.00-0.15)
[2022-03-23] MEDS: D5% in 0.45% NACL w KCl 20 MEQ/1,000 ML MLS IVC SCH ×3 (13:15→22:17)
[2022-03-23 13:44] LABS: BUN/Creatinine Ratio 15 (6-26); Blood Urea Nitrogen 10 mg/dL (6-20); Calcium 8.5 mg/dL (8.6-10.3); Carbon Dioxide 15 mEq/L (23-29); Chloride 105 mEq/L (98-107); Glucose 150 mg/dL (70-105); Osmolality,Calculated 280 (280-300); Potassium 4.5 mEq/L (3.5-5.1); Sodium 134 mEq/L (136-145); eGFR For African Americans > 60 (> 60); eGFR For Non-African Americans > 60 (> 60)
[2022-03-23 15:12] VITALS: O2SAT 100
[2022-03-23 16:21] LABS: VBG HCO3 24 mEq/L (21-27); VBG PCO2 44 mmHg (41-51); VBG PH 7.35 pH Units (7.32-7.42); VBG PO2 46 mmHg (25-50)
[2022-03-23 16:44] LABS: BUN/Creatinine Ratio 12 (6-26); Blood Urea Nitrogen 8 mg/dL (6-20); Calcium 8.6 mg/dL (8.6-10.3); Carbon Dioxide 25 mEq/L (23-29); Chloride 102 mEq/L (98-107); Glucose 99 mg/dL (70-105); Osmolality,Calculated 276 (280-300); Potassium 3.3 mEq/L (3.5-5.1); Sodium 134 mEq/L (136-145); eGFR For African Americans > 60 (> 60); eGFR For Non-African Americans > 60 (> 60)
[2022-03-23] MEDS ORDERED: Insulin LISPRO 300 UNITS/3 ML VIAL SUBQ SCH (17:15)
[2022-03-23] MEDS ORDERED: 0.9 % Sodium Chloride 1,000 ML ONE (17:24)
[2022-03-23] MEDS: Insulin DETEMIR 100 UNIT/ML X5UNITS SUBQ SCH (17:40)
[2022-03-24] MEDS: D5% in 0.45% NACL w KCl 20 MEQ/1,000 ML MLS IVC SCH ×2 (01:09→06:20)
[2022-03-24 01:36] LABS: BUN/Creatinine Ratio 14 (6-26); Blood Urea Nitrogen 10 mg/dL (6-20); Calcium 8.6 mg/dL (8.6-10.3); Carbon Dioxide 23 mEq/L (23-29); Chloride 99 mEq/L (98-107); Glucose 211 mg/dL (70-105); Osmolality,Calculated 277 (280-300); Potassium 3.7 mEq/L (3.5-5.1); Sodium 131 mEq/L (136-145); eGFR For African Americans > 60 (> 60); eGFR For Non-African Americans > 60 (> 60)
[2022-03-24 07:26] VITALS: BP 138/83
[2022-03-24] MEDS: Insulin LISPRO 300 UNITS/3 ML VIAL SUBQ SCH ×3 (08:36→16:28)
[2022-03-24] MEDS: Insulin DETEMIR 100 UNIT/ML X5UNITS SUBQ SCH ×2 (08:37→20:42)
[2022-03-24] MEDS: Ondansetron 4 MG/2 ML VIAL IVP PRN (08:41)
[2022-03-24 11:14] VITALS: PULSE 79
[2022-03-24 19:24] VITALS: TEMP 98.6
[2022-03-25 04:00] LABS: BUN/Creatinine Ratio 21 (6-26); Blood Urea Nitrogen 17 mg/dL (6-20); Calcium 9.2 mg/dL (8.6-10.3); Carbon Dioxide 23 mEq/L (23-29); Chloride 97 mEq/L (98-107); Glucose 241 mg/dL (70-105); Osmolality,Calculated 283 (280-300); Sodium 132 mEq/L (136-145); eGFR For African Americans > 60 (> 60); eGFR For Non-African Americans > 60 (> 60)
[2022-03-25] MEDS: Insulin LISPRO 300 UNITS/3 ML VIAL SUBQ SCH ×2 (09:43→11:39)
[2022-03-25] MEDS: Insulin DETEMIR 100 UNIT/ML X5UNITS SUBQ SCH (09:54)
[2022-03-25] MEDS ORDERED: Insulin Human Regular 7 UNIT in 0.9 % Sodium Chloride 10 ML IV ONE (13:44)
== END 2022-03-25 14:02 | disposition home or self-care (01) ==
LOC: 2NNU → 2NENU 03-24 11:34
PROVIDERS: ADMIT Internal Medicine; ATTEND Internal Medicine

== ENCOUNTER 2022-08-30 10:42 | Observation (INO) ==
[2022-08-30] MEDS ORDERED: Ringers Solution, Lactated 1,000 ML IVC ONE (10:57)
[2022-08-30] MEDS ORDERED: 0.9 % Sodium Chloride 1,000 ML IVC ONE (10:57)
[2022-08-30 11:15] LABS: Hematocrit 42.9 % (37.5-50.1); Hemoglobin 13.7 g/dL (12.9-16.9); Immature Granulocytes % 0.3 % (0-4); Lymphocytes % 7.4 %; Mean Corpuscular HGB Conc 31.9 g/dL (31.6-35.5); Mean Corpuscular Hemoglobin 28.2 pg (28.0-33.3); Mean Corpuscular Volume 88.5 fL (83.0-100.0); Monocytes % 3.2 %; Platelet Count 475 K/mcL (140-400); Red Blood Count 4.85 M/mcL (4.19-5.50); Red Cell Distribution Width 15.8 % (11.5-14.5); Segmented Neutrophils % 88.6 %; White Blood Count 10.1 K/mcL (4.3-11.1)
[2022-08-30] MEDS ORDERED: Ondansetron 4 MG/2 ML VIAL IVP ONE (11:15)
[2022-08-30 11:16] LABS: Basophils # 0.1 K/mcL (0.0-0.2); Basophils % 0.5 %; Lymphocytes # 0.8 K/mcL (0.6-4.6); Monocytes # 0.3 K/mcL (0.0-1.3); Neutrophils # 8.9 K/mcL (1.6-8.9)
[2022-08-30 11:20] LABS: VBG HCO3 8 mEq/L (21-27); VBG PCO2 24 mmHg (41-51); VBG PH 7.14 pH Units (7.32-7.42); VBG PO2 68 mmHg (25-50)
[2022-08-30 11:44] LABS: Calcium 10.2 mg/dL (8.6-10.3); Magnesium 2.6 mg/dL (1.6-2.6); Potassium 5.6 mEq/L (3.5-5.1)
[2022-08-30] MEDS ORDERED: Metoclopramide 10 MG/2 ML VIAL IVP PRN (11:58)
[2022-08-30] MEDS ORDERED: Dextrose Gel 15 GM/37.5 ML TUBE PO PRN ×2 (12:07)
[2022-08-30] MEDS ORDERED: D5% in Water 1,000 ML IVC PRN (12:07)
[2022-08-30] MEDS ORDERED: Melatonin 3 MG TABLET PO PRN (12:08)
[2022-08-30] MEDS ORDERED: Acetaminophen 325 MG TABLET PO PRN (12:08)
[2022-08-30] MEDS ORDERED: *HR* Dextrose 50 % in Water (Syg) 50 ML SYRINGE IVP PRN (12:13)
[2022-08-30] MEDS ORDERED: D5% in 0.45% NACL w KCl 20 MEQ/1,000 ML MLS IVC PRN (12:13)
[2022-08-30 12:42] LABS: Influenza A PCR Negative (Negative); Influenza B PCR Negative (Negative); Resp. Syncytial Virus PCR Negative (Negative)
[2022-08-30 12:44] LABS: SARS-CoV-2 by PCR (In House) Positive (Negative)
[2022-08-30 14:03] LABS: Phosphorous 6.5 mg/dL (2.7-4.5)
[2022-08-30] MEDS: 0.9 % Sodium Chloride 1,000 ML IVC SCH ×3 (14:51→17:23)
[2022-08-30] MEDS: Clotrimazole 1% CRM 15 GM TUBE TP SCH ×2 (14:52→21:40)
[2022-08-30] MEDS: *HR* Enoxaparin 40 MG/0.4 ML SYRINGE SQ SCH (15:34)
[2022-08-30] MEDS: Ringers Solution, Lactated 1,000 ML IVC SCH ×2 (15:43→17:23)
[2022-08-30] MEDS ORDERED: *HR* Promethazine 25 MG/ML VIAL IM PRN (15:46)
[2022-08-30 16:31] LABS: VBG HCO3 7 mEq/L (21-27); VBG PCO2 21 mmHg (41-51); VBG PH 7.14 pH Units (7.32-7.42); VBG PO2 200 mmHg (25-50)
[2022-08-30 16:50] LABS: BUN/Creatinine Ratio 20 (6-26); Blood Urea Nitrogen 23 mg/dL (6-20); Calcium 9.6 mg/dL (8.6-10.3); Carbon Dioxide 4 mEq/L (23-29); Chloride 109 mEq/L (98-107); Glucose 406 mg/dL (70-105); Osmolality,Calculated 315 (280-300); Potassium 4.1 mEq/L (3.5-5.1); Sodium 142 mEq/L (136-145)
[2022-08-30] MEDS: 0.45 % Sodium Chloride w/KCl 20 MEQ/1,000 ML MLS IVC SCH ×2 (17:13→20:01)
[2022-08-30 21:43] LABS: VBG HCO3 18 mEq/L (21-27); VBG PCO2 30 mmHg (41-51); VBG PH 7.38 pH Units (7.32-7.42); VBG PO2 221 mmHg (25-50)
[2022-08-30 22:00] LABS: BUN/Creatinine Ratio 18 (6-26); Blood Urea Nitrogen 16 mg/dL (6-20); Calcium 8.8 mg/dL (8.6-10.3); Carbon Dioxide 17 mEq/L (23-29); Chloride 115 mEq/L (98-107); Glucose 108 mg/dL (70-105); Osmolality,Calculated 296 (280-300); Potassium 4.3 mEq/L (3.5-5.1); Sodium 142 mEq/L (136-145)
[2022-08-30] MEDS: *HR* Dextrose 50 % in Water (Syg) 50 ML SYRINGE IVP PRN (22:37)
[2022-08-30] MEDS ORDERED: Insulin DETEMIR 100 UNIT/ML X5UNITS SUBQ ONE (23:00)
[2022-08-31] MEDS: Ondansetron 4 MG/2 ML VIAL IVP PRN ×2 (00:33→06:42)
[2022-08-31 01:52] LABS: VBG HCO3 18 mEq/L (21-27); VBG PCO2 33 mmHg (41-51); VBG PH 7.35 pH Units (7.32-7.42); VBG PO2 142 mmHg (25-50)
[2022-08-31 02:00] LABS: BUN/Creatinine Ratio 16 (6-26); Blood Urea Nitrogen 14 mg/dL (6-20); Calcium 9.1 mg/dL (8.6-10.3); Carbon Dioxide 18 mEq/L (23-29); Chloride 114 mEq/L (98-107); Glucose 105 mg/dL (70-105); Osmolality,Calculated 293 (280-300); Potassium 3.9 mEq/L (3.5-5.1); Sodium 141 mEq/L (136-145)
[2022-08-31 02:27] LABS: Estimated Average Glucose 280 mg/dl; Hemoglobin A1C 11.4 %
[2022-08-31 05:47] LABS: Hematocrit 33.9 % (37.5-50.1); Hemoglobin 11.8 g/dL (12.9-16.9); Mean Corpuscular HGB Conc 34.8 g/dL (31.6-35.5); Mean Corpuscular Hemoglobin 28.1 pg (28.0-33.3); Mean Corpuscular Volume 80.7 fL (83.0-100.0); Mean Platelet Volume 9.2 fL (9.4-12.4); Platelet Count 475 K/mcL (140-400); Red Cell Distribution Width 16.8 % (11.5-14.5); White Blood Count 16.9 K/mcL (4.3-11.1)
[2022-08-31 06:19] LABS: BUN/Creatinine Ratio 15 (6-26); Blood Urea Nitrogen 13 mg/dL (6-20); Calcium 9.3 mg/dL (8.6-10.3); Carbon Dioxide 21 mEq/L (23-29); Chloride 114 mEq/L (98-107); Glucose 38 mg/dL (70-105); Osmolality,Calculated 295 (280-300); Potassium 3.8 mEq/L (3.5-5.1); Sodium 144 mEq/L (136-145)
[2022-08-31] MEDS: *HR* Dextrose 50 % in Water (Syg) 50 ML SYRINGE IVP PRN (06:27)
[2022-08-31] MEDS: Insulin LISPRO 300 UNITS/3 ML VIAL SUBQ SCH ×2 (11:20→18:45)
[2022-08-31] MEDS: *HR* Enoxaparin 40 MG/0.4 ML SYRINGE SQ SCH (11:37)
[2022-08-31] MEDS: Clotrimazole 1% CRM 15 GM TUBE TP SCH ×2 (11:37→20:16)
[2022-08-31 17:03] LABS: VBG HCO3 22 mEq/L (21-27); VBG PCO2 34 mmHg (41-51); VBG PH 7.41 pH Units (7.32-7.42); VBG PO2 206 mmHg (25-50)
[2022-08-31] MEDS: Insulin DETEMIR 100 UNIT/ML X5UNITS SUBQ SCH (20:15)
[2022-09-01 03:17] VITALS: TEMP 98.2
[2022-09-01 05:29] LABS: Hematocrit 30.8 % (37.5-50.1); Hemoglobin 10.5 g/dL (12.9-16.9); Mean Corpuscular HGB Conc 34.1 g/dL (31.6-35.5); Mean Corpuscular Hemoglobin 27.6 pg (28.0-33.3); Mean Corpuscular Volume 81.1 fL (83.0-100.0); Mean Platelet Volume 9.2 fL (9.4-12.4); Platelet Count 345 K/mcL (140-400); Red Cell Distribution Width 16.9 % (11.5-14.5); White Blood Count 9.4 K/mcL (4.3-11.1)
[2022-09-01 05:48] LABS: BUN/Creatinine Ratio 16 (6-26); Blood Urea Nitrogen 10 mg/dL (6-20); Carbon Dioxide 26 mEq/L (23-29); Chloride 105 mEq/L (98-107); Glucose 50 mg/dL (70-105); Osmolality,Calculated 280 (280-300); Potassium 3.8 mEq/L (3.5-5.1); Sodium 137 mEq/L (136-145)
[2022-09-01 07:02] VITALS: O2SAT 98
[2022-09-01] MEDS: *HR* Enoxaparin 40 MG/0.4 ML SYRINGE SQ SCH (08:37)
[2022-09-01] MEDS: Insulin DETEMIR 100 UNIT/ML X5UNITS SUBQ SCH (08:37)
[2022-09-01] MEDS: Insulin LISPRO 300 UNITS/3 ML VIAL SUBQ SCH (08:45)
[2022-09-01] MEDS: Clotrimazole 1% CRM 15 GM TUBE TP SCH (08:46)
[2022-09-01 10:59] VITALS: BP 127/80; PULSE 117
== END 2022-09-01 12:36 | disposition home or self-care (01) ==
LOC: EMEROOARM 10:42 → 2NNU 10:42 → 3ANU 08-31 20:42
PROVIDERS: ADMIT Internal Medicine; ATTEND Internal Medicine